=== PATIENT | male | born 1995 | race Caucasian/White ===

== ENCOUNTER 2017-09-12 23:42 | Emergency (ER) | payer BC ==
[2017-09-12] MEDS ORDERED: Pantoprazole 40 MG Vial IVPUSH ONE (23:51)
[2017-09-12] MEDS ORDERED: Ondansetron 4 MG/2 ML SDV IVPUSH ONE (23:51)
[2017-09-12] MEDS ORDERED: Sodium Chloride 0.9% 1,000 ML IV ONE (23:51)
[2017-09-12] MEDS ORDERED: Alum Hydrox/Mag Hydrox/Simeth 15 ML, Metoclopramide 5 MG, Lidocaine 2% 5 ML PO ONE ×3 (23:51)
--- NOTE | 2017-09-12 23:55 | EDM.PDOC ---
ED HPI GENERAL MEDICAL PROBLEM - General Chief Complaint: Gastrointestinal Problem Stated Complaint: ABDOMINAL PAIN Time Seen by Provider: 09/12/17 23:50 - History of Present Illness INITIAL COMMENTS - FREE TEXT/NARRATIVE: HISTORY AND PHYSICAL: History of present illness: Patient 22-year-old white male presents concerned about epigastric discomfort started approximately 1 hour prior to arrival was quite severe but is improved significantly. In one episode of self-induced emesis he denies fever chills or other complaints at this time Review of systems: As per history of present illness and below otherwise all systems reviewed and negative. Past medical history: As per history of present illness and as reviewed below otherwise noncontributory. Surgical history: As per history of present illness and as reviewed below otherwise noncontributory. Social history: No reported history of drug or alcohol abuse. Family history: As per history of present illness and as reviewed below otherwise noncontributory. Physical exam: HEENT: Atraumatic, normocephalic, pupils reactive, negative for conjunctival pallor or scleral icterus, mucous membranes moist, throat clear, neck supple, nontender, trachea midline. Lungs: Clear to auscultation, breath sounds equal bilaterally, chest nontender. Heart: S1S2, regular, negative for clicks, rubs, or JVD. Abdomen: Soft, nondistended, mild epigastric tenderness no rebound no guarding. Negative for masses or hepatosplenomegaly. Negative for costovertebral tenderness. Pelvis: Stable nontender. Genitourinary: Deferred. Rectal: Deferred. Extremities: Atraumatic, negative for cords or calf pain. Neurovascular unremarkable. Neuro: Awake, alert, oriented. Cranial nerves II through XII unremarkable. Cerebellum unremarkable. Motor and sensory unremarkable throughout. Exam nonfocal. Diagnostics: CBC CMP lipase chest x-ray Therapeutics: Normal saline 1 L bolus Zofran 4 mg IV GI cocktail Protonix 80 mg IV Impression: #1 epigastric abdominal pain Definitive disposition and diagnosis as appropriate pending reevaluation and review of above. abdominal pain Pain Score (Numeric/FACES): 3 - Related Data Allergies Allergy/AdvReac Type Severity Reaction Status Date / Time beeswax Allergy Swelling Verified 09/13/17 00:10 Home Meds: Home Meds . [No Known Home Meds] 08/05/16 [History] Past Medical History - Past Health History Medical/Surgical History: Denies Medical/Surgical History Social & Family History - Family History Family Medical History: Noncontributory - Tobacco Use Smoking Status *Q: Never Smoker Second Hand Smoke Exposure: Yes - Recreational Drug Use Recreational Drug Use: No ED ROS GENERAL - Review of Systems Review Of Systems: ROS reveals no pertinent complaints other than HPI. ED EXAM, GENERAL - Physical Exam Exam: See Below (The dictation) Course - Vital Signs Last Recorded V/S: Last Vital Signs Temp 37.2 C 09/12/17 23:48 Pulse 69 09/12/17 23:48 Resp 18 09/12/17 23:48 BP 137/107 H 09/12/17 23:48 Pulse Ox 100 09/12/17 23:48 - Orders/Labs/Meds Orders: Active Orders 24 hr Category Date Time Status Chest 1V Frontal [CR] Stat Exams 09/12/17 23:51 Taken UA W/MICROSCOPIC [URIN] Stat Lab 09/13/17 00:35 Results Sodium Chloride 0.9% [Normal Saline] 1,000 ml Med 09/12/17 23:51 Active IV STAT Medication Orders Sodium Chloride (Normal Saline) 1,000 mls @ 999 mls/hr IV STAT ONE Stop: 09/13/17 00:51 Last Admin: 09/12/17 23:59 Dose: 999 mls/hr Labs: Laboratory Tests 09/12/17 09/12/17 09/13/17 Range/Units 23:59 23:59 00:35 WBC 6.84 (4.0-11.0) K/uL RBC 5.10 (4.50-5.90) M/uL Hgb 15.1 (13.0-17.0) g/dL Hct 44.5 (38.0-50.0) % MCV 87.3 (80.0-98.0) fL MCH 29.6 (27.0-32.0) pg MCHC 33.9 (31.0-37.0) g/dL RDW Std Deviation 41.1 (28.0-62.0) fl RDW Coeff of Yair 13 (11.0-15.0) % Plt Count 263 (150-400) K/uL MPV 10.60 (7.40-12.00) fL Neut % (Auto) 61.7 (48.0-80.0) % Lymph % (Auto) 26.3 (16.0-40.0) % [place] % (Auto) 9.4 (0.0-15.0) % Eos % (Auto) 1.9 (0.0-7.0) % Baso % (Auto) 0.7 (0.0-1.5) % Neut # (Auto) 4.2 (1.4-5.7) K/uL Lymph # (Auto) 1.8 (0.6-2.4) K/uL [place] # (Auto) 0.6 (0.0-0.8) K/uL Eos # (Auto) 0.1 (0.0-0.7) K/uL Baso # (Auto) 0.1 (0.0-0.1) K/uL Nucleated RBC % 0.0 /100WBC Nucleated RBCs # 0 K/uL Sodium 140 (136-146) mmol/L Potassium 3.8 (3.5-5.1) mmol/L Chloride 104 (98-110) mmol/L Carbon Dioxide 25 (21-31) mmol/L BUN 11 (6.0-23.0) mg/dL Creatinine 0.9 (0.6-1.5) mg/dL Est Cr Clr Drug Dosing 99.96 mL/min Estimated GFR (MDRD) > 60.0 ml/min Glucose 104 (60-110) mg/dL Calcium 10.0 (8.8-10.8) mg/dL Total Bilirubin 0.3 (0.1-1.5) mg/dL AST 15 (5-40) IU/L ALT 13 (8-54) IU/L Alkaline Phosphatase 51 (40-150) Total Protein 7.7 (6.0-8.0) g/dL Albumin 4.7 (3.5-5.0) g/dL Globulin 3.0 (2.0-3.5) g/dL Albumin/Globulin Ratio 1.6 (1.3-2.8) Lipase 23 (7-80) U/L Urine Color YELLOW Urine Appearance CLEAR Urine pH 6.0 (5.0-8.0) Ur Specific [place] >= 1.030 (1.001-1.035) Urine Protein NEGATIVE (NEGATIVE) mg/dL Urine Glucose (UA) NEGATIVE (NEGATIVE) mg/dL Urine Ketones NEGATIVE (NEGATIVE) mg/dL Urine Occult Blood NEGATIVE (NEGATIVE) Urine Nitrite NEGATIVE (NEGATIVE) Urine Bilirubin NEGATIVE (NEGATIVE) Urine Urobilinogen 0.2 (<2.0) EU/dL Ur Leukocyte Esterase NEGATIVE (NEGATIVE) Meds: Medications Generic Name Dose Route Start Last Admin Trade Name Renq PRN Reason Stop Dose Admin Sodium Chloride 1,000 mls @ 999 mls/hr 09/12/17 23:51 09/12/17 23:59 Normal Saline IV 09/13/17 00:51 999 mls/hr STAT ONE Administration Discontinued Medications Generic Name Dose Route Start Last Admin Trade Name Freq PRN Reason Stop Dose Admin Al Hydroxide/Mg Hydroxide 15 0 ml 09/12/17 23:51 09/12/17 23:59 ml/ Metoclopramide HCl 5 mg/ PO 09/12/17 23:52 25 each Lidocaine HCl 5 ml ONETIME ONE Administration Ondansetron HCl 4 mg 09/12/17 23:51 09/12/17 23:59 Zofran IVPUSH 09/12/17 23:52 4 mg ONETIME ONE Administration Pantoprazole Sodium 80 mg 09/12/17 23:51 09/12/17 23:59 Protonix Iv IVPUSH 09/12/17 23:52 80 mg .BOLUS ONE Administration Departure - Departure Time of Disposition: 23:54 Disposition: Home, Self-Care 01 Condition: Good Clinical Impression: Epigastric pain - Discharge Information Referrals: PCP,None [Primary Care Provider] - Forms: ED Department Discharge Additional Instructions: The following information is given to patients seen in the emergency department who are being discharged to home. This information is to outline your options for follow-up care. We provide all patients seen in our emergency department with a follow-up referral. The need for follow-up, as well as the timing and circumstances, are variable depending upon the specifics of your emergency department visit. If you don't have a primary care physician on staff, we will provide you with a referral. We always advise you to contact your personal physician following an emergency department visit to inform them of the circumstance of the visit and for follow-up with them and/or the need for any referrals to a consulting specialist. The emergency department will also refer you to a specialist when appropriate. This referral assures that you have the opportunity for followup care with a specialist. All of these measure are taken in an effort to provide you with optimal care, which includes your followup. Under all circumstances we always encourage you to contact your private physician who remains a resource for coordinating your care. When calling for followup care, please make the office aware that this follow-up is from your recent emergency room visit. If for any reason you are refused follow-up, please contact the [facility] emergency department at and asked to speak to the emergency department charge nurse. [facility] Specialty Care - General Surgery Professional Building [address] [place] [address], [address] [place] [address] Protonix as prescribed follow-up primary medical doctor 1-2 days return as needed as discussed follow-up Gen. surgery as needed as discussed - My Orders Last 24 Hours: My Active Orders 09/12/17 23:51 Chest 1V Frontal [CR] Stat Sodium Chloride 0.9% [Normal Saline] 1,000 ml IV STAT 09/13/17 00:35 UA W/MICROSCOPIC [URIN] Stat - Assessment/Plan Last 24 Hours: My Active Orders 09/12/17 23:51 Chest 1V Frontal [CR] Stat Sodium Chloride 0.9% [Normal Saline] 1,000 ml IV STAT 09/13/17 00:35 UA W/MICROSCOPIC [URIN] Stat
[2017-09-13 00:40] LABS: CHLORIDE,CL 104 mmol/L (98-110); SODIUM,NA 140 mmol/L (136-146)
[2017-09-13 01:50] VITALS: BP 118/67
--- NOTE | 2017-09-13 13:35 | CR ---
EXAM DATE: 09/12/17 PATIENT'S AGE: 22 Patient: JUANA ATKINSON Facility: [place], [place] Site . Site : 1995 Study: XRay Chest [id number]/27/2017 12:37:47 AM Ordering Physician: Levy Yost Final Report: INDICATION: Shortness of breath TECHNIQUE: Chest radiograph COMPARISON: None FINDINGS: Mediastinum: The heart silhouette is normal in size and morphology. The mediastinum is normal in appearance. Lungs: Both lungs are unremarkable in appearance. No sign of pleural effusion seen. No pneumothorax is identified. Bones and soft tissue: Unremarkable for age. IMPRESSION: 1. No acute cardiopulmonary disease is seen. Dictated by: Darron York MD @ 09/13/2017 00:40:08 (Electronic Signature) Report Signed by Proxy. [facility]
== END 2017-09-13 01:30 | disposition home or self-care (01) ==
LOC: MW.ED 23:42
DX: R10.13 Epigastric pain (principal); Z91.030 Bee allergy status
CPT/HCPCS: 71010; 80053; 81001; 83690; 85025; 87804; 96361; 96374; 96375; 99284; A9270; C9113; J2405; J7040; 99283

== ENCOUNTER 2017-09-21 01:55 | Emergency (ER) | payer BC ==
[2017-09-21] MEDS ORDERED: Ondansetron 4 MG/2 ML SDV IVPUSH ONE (01:59)
[2017-09-21] MEDS ORDERED: Sodium Chloride 0.9% 1,000 ML IV ONE (01:59)
[2017-09-21] MEDS ORDERED: Ketorolac 30 MG/ML SDV IVPUSH ONE (01:59)
[2017-09-21] MEDS ORDERED: Aspirin 81 MG Tab.Chew PO ONE (01:59)
[2017-09-21] MEDS ORDERED: Albuterol/Ipratropium 3.0-0.5 MG/3 ML Neb Soln NEB ONE (02:01)
--- NOTE | 2017-09-21 02:06 | EDM.PDOC ---
ED HPI GENERAL MEDICAL PROBLEM - General Chief Complaint: Chest Pain Stated Complaint: CHEST PAIN Time Seen by Provider: 09/21/17 02:04 Source of Information: Reports: Patient - History of Present Illness INITIAL COMMENTS - FREE TEXT/NARRATIVE: HISTORY AND PHYSICAL: History of present illness: [Patient presents with epigastric pain as well as some shortness of breath that began tonight, he has had a recent visit for abdominal pain as well within the last week tonight associated with eating pizza couple hours prior Similar symptoms no fever nausea vomiting chills sweats Patient was taking a bath tonight and pain began acutely for right upper quadrant to epigastrium tonight patient states he is short of breath actually pain increases with deep inspiration he does not appear short of breath no labored breathing able to speak full sentences clearly no retractions or tripoding no pursed lip breathing ] Significant family cardiac history with a cardiac disease between 20 and 40 Review of systems: As per history of present illness and below otherwise all systems reviewed and negative. Past medical history: As per history of present illness and as reviewed below otherwise noncontributory. Surgical history: As per history of present illness and as reviewed below otherwise noncontributory. Social history: No reported history of drug or alcohol abuse. Family history: As per history of present illness and as reviewed below otherwise noncontributory. Physical exam: HEENT: Atraumatic, normocephalic, pupils reactive, negative for conjunctival pallor or scleral icterus, mucous membranes moist, throat clear, neck supple, nontender, trachea midline. Lungs: Clear to auscultation, breath sounds equal bilaterally, chest nontender. Heart: S1S2, regular, negative for clicks, rubs, or JVD. Abdomen: Soft, nondistended, nontender. Negative for masses or hepatosplenomegaly. Negative for costovertebral tenderness. Pelvis: Stable nontender. Genitourinary: Deferred. Rectal: Deferred. Extremities: Atraumatic, negative for cords or calf pain. Neurovascular unremarkable. Neuro: Awake, alert, oriented. Cranial nerves II through XII unremarkable. Cerebellum unremarkable. Motor and sensory unremarkable throughout. Exam nonfocal. Diagnostics: [CBC CMP lipase troponin urine tox screen EKG Chest 1 view Abdomen limited right upper quadrant ] Therapeutics: [1 L normal saline bolus Zofran 8 mg IV Toradol 30 mg IV DuoNeb ] Impression: Biliary colic Cholelithiasis Definitive disposition and diagnosis as appropriate pending reevaluation and review of above. right chest Pain Score (Numeric/FACES): 8 - Related Data Allergies Allergy/AdvReac Type Severity Reaction Status Date / Time Bee wasp Allergy Hives Uncoded 09/21/17 02:08 Home Meds: Home Meds . [No Known Home Meds] 08/05/16 [History] Past Medical History - Past Health History Medical/Surgical History: Denies Medical/Surgical History HEENT History: Reports: None Cardiovascular History: Reports: None Respiratory History: Reports: None Gastrointestinal History: Reports: None Genitourinary History: Reports: None Musculoskeletal History: Reports: None Neurological History: Reports: None Psychiatric History: Reports: None Endocrine/Metabolic History: Reports: None Hematologic History: Reports: None Immunologic History: Reports: None Oncologic (Cancer) History: Reports: None Dermatologic History: Reports: None - Infectious Disease History Infectious Disease History: Reports: None - Past Surgical History Head Surgeries/Procedures: Reports: None Social & Family History - Family History Family Medical History: Noncontributory - Tobacco Use Smoking Status *Q: Never Smoker Second Hand Smoke Exposure: Yes - Caffeine Use Caffeine Use: Reports: Soda - Recreational Drug Use Recreational Drug Use: No ED ROS GENERAL - Review of Systems Review Of Systems: ROS reveals no pertinent complaints other than HPI. ED EXAM, GENERAL - Physical Exam Exam: See Below Course - Vital Signs Last Recorded V/S: Last Vital Signs Temp 97.6 F 09/21/17 01:55 Pulse 98 09/21/17 01:55 Resp 20 09/21/17 01:55 BP 170/109 H 09/21/17 01:55 Pulse Ox 100 09/21/17 01:55 - Orders/Labs/Meds Orders: Active Orders 24 hr Category Date Time Status EKG Documentation Completion [RC] STAT Care 09/21/17 01:57 Active RT Aerosol Therapy [RC] ASDIRECTED Care 09/21/17 02:02 Active Abdomen Ltd [US] Stat Exams 09/21/17 02:03 Taken Chest 1V Frontal [CR] Stat Exams 09/21/17 01:57 Taken Labs: Laboratory Tests 09/21/17 09/21/17 09/21/17 Range/Units 02:18 02:18 02:53 WBC 7.32 (4.0-11.0) K/uL RBC 5.26 (4.50-5.90) M/uL Hgb 15.5 (13.0-17.0) g/dL Hct 45.1 (38.0-50.0) % MCV 85.7 (80.0-98.0) fL MCH 29.5 (27.0-32.0) pg MCHC 34.4 (31.0-37.0) g/dL RDW Std Deviation 39.6 (28.0-62.0) fl RDW Coeff of Yair 13 (11.0-15.0) % Plt Count 281 (150-400) K/uL MPV 10.40 (7.40-12.00) fL Neut % (Auto) 47.1 L (48.0-80.0) % Lymph % (Auto) 40.8 H (16.0-40.0) % [place] % (Auto) 8.3 (0.0-15.0) % Eos % (Auto) 3.0 (0.0-7.0) % Baso % (Auto) 0.8 (0.0-1.5) % Neut # (Auto) 3.4 (1.4-5.7) K/uL Lymph # (Auto) 3.0 H (0.6-2.4) K/uL [place] # (Auto) 0.6 (0.0-0.8) K/uL Eos # (Auto) 0.2 (0.0-0.7) K/uL Baso # (Auto) 0.1 (0.0-0.1) K/uL Nucleated RBC % 0.0 /100WBC Nucleated RBCs # 0 K/uL Sodium 143 (136-146) mmol/L Potassium 3.5 (3.5-5.1) mmol/L Chloride 108 (98-110) mmol/L Carbon Dioxide 24 (21-31) mmol/L BUN 8 (6.0-23.0) mg/dL Creatinine 0.9 (0.6-1.5) mg/dL Est Cr Clr Drug Dosing 99.96 mL/min Estimated GFR (MDRD) > 60.0 ml/min Glucose 89 (60-110) mg/dL Calcium 9.7 (8.8-10.8) mg/dL Total Bilirubin 0.5 (0.1-1.5) mg/dL AST 16 (5-40) IU/L ALT 20 (8-54) IU/L Alkaline Phosphatase 56 (40-150) Troponin I < 0.10 (0.0-0.29) NG/ML Total Protein 8.2 H (6.0-8.0) g/dL Albumin 5.0 (3.5-5.0) g/dL Globulin 3.2 (2.0-3.5) g/dL Albumin/Globulin Ratio 1.6 (1.3-2.8) Amylase 34 (10-90) U/L Lipase 27 (7-80) U/L Urine Color Urine Appearance Urine pH (5.0-8.0) Ur Specific [place] (1.001-1.035) Urine Protein (NEGATIVE) mg/dL Urine Glucose (UA) (NEGATIVE) mg/dL Urine Ketones (NEGATIVE) mg/dL Urine Occult Blood (NEGATIVE) Urine Nitrite (NEGATIVE) Urine Bilirubin (NEGATIVE) Urine Urobilinogen (<2.0) EU/dL Ur Leukocyte Esterase (NEGATIVE) Urine RBC (0-2/HPF) Urine WBC (0-5/HPF) Ur Epithelial Cells (NONE-FEW) Urine Bacteria (NEGATIVE) Urine Opiates Screen NEGATIVE (NEGATIVE) Ur Oxycodone Screen NEGATIVE (NEGATIVE) Urine Methadone Screen NEGATIVE (NEGATIVE) Ur Barbiturates Screen NEGATIVE (NEGATIVE) Ur Phencyclidine Scrn NEGATIVE (NEGATIVE) Ur Amphetamine Screen NEGATIVE (NEGATIVE) U Methamphetamines Scrn NEGATIVE (NEGATIVE) U Benzodiazepines Scrn NEGATIVE (NEGATIVE) U Cocaine Metab Screen NEGATIVE (NEGATIVE) U Marijuana (THC) Screen NEGATIVE (NEGATIVE) 09/21/17 Range/Units 02:53 WBC (4.0-11.0) K/uL RBC (4.50-5.90) M/uL Hgb (13.0-17.0) g/dL Hct (38.0-50.0) % MCV (80.0-98.0) fL MCH (27.0-32.0) pg MCHC (31.0-37.0) g/dL RDW Std Deviation (28.0-62.0) fl RDW Coeff of Yair (11.0-15.0) % Plt Count (150-400) K/uL MPV (7.40-12.00) fL Neut % (Auto) (48.0-80.0) % Lymph % (Auto) (16.0-40.0) % [place] % (Auto) (0.0-15.0) % Eos % (Auto) (0.0-7.0) % Baso % (Auto) (0.0-1.5) % Neut # (Auto) (1.4-5.7) K/uL Lymph # (Auto) (0.6-2.4) K/uL [place] # (Auto) (0.0-0.8) K/uL Eos # (Auto) (0.0-0.7) K/uL Baso # (Auto) (0.0-0.1) K/uL Nucleated RBC % /100WBC Nucleated RBCs # K/uL Sodium (136-146) mmol/L Potassium (3.5-5.1) mmol/L Chloride (98-110) mmol/L Carbon Dioxide (21-31) mmol/L BUN (6.0-23.0) mg/dL Creatinine (0.6-1.5) mg/dL Est Cr Clr Drug Dosing mL/min Estimated GFR (MDRD) ml/min Glucose (60-110) mg/dL Calcium (8.8-10.8) mg/dL Total Bilirubin (0.1-1.5) mg/dL AST (5-40) IU/L ALT (8-54) IU/L Alkaline Phosphatase (40-150) Troponin I (0.0-0.29) NG/ML Total Protein (6.0-8.0) g/dL Albumin (3.5-5.0) g/dL Globulin (2.0-3.5) g/dL Albumin/Globulin Ratio (1.3-2.8) Amylase (10-90) U/L Lipase (7-80) U/L Urine Color YELLOW Urine Appearance CLEAR Urine pH 6.0 (5.0-8.0) Ur Specific [place] >= 1.030 (1.001-1.035) Urine Protein NEGATIVE (NEGATIVE) mg/dL Urine Glucose (UA) NEGATIVE (NEGATIVE) mg/dL Urine Ketones NEGATIVE (NEGATIVE) mg/dL Urine Occult Blood NEGATIVE (NEGATIVE) Urine Nitrite NEGATIVE (NEGATIVE) Urine Bilirubin NEGATIVE (NEGATIVE) Urine Urobilinogen 0.2 (<2.0) EU/dL Ur Leukocyte Esterase NEGATIVE (NEGATIVE) Urine RBC 0-1 (0-2/HPF) Urine WBC 0-1 (0-5/HPF) Ur Epithelial Cells RARE (NONE-FEW) Urine Bacteria RARE (NEGATIVE) Urine Opiates Screen (NEGATIVE) Ur Oxycodone Screen (NEGATIVE) Urine Methadone Screen (NEGATIVE) Ur Barbiturates Screen (NEGATIVE) Ur Phencyclidine Scrn (NEGATIVE) Ur Amphetamine Screen (NEGATIVE) U Methamphetamines Scrn (NEGATIVE) U Benzodiazepines Scrn (NEGATIVE) U Cocaine Metab Screen (NEGATIVE) U Marijuana (THC) Screen (NEGATIVE) Meds: Medications Discontinued Medications Generic Name Dose Route Start Last Admin Trade Name Freq PRN Reason Stop Dose Admin Albuterol/Ipratropium 3 ml 09/21/17 02:01 09/21/17 02:20 Duoneb 3.0-0.5 Mg/3 Ml NEB 09/21/17 02:02 3 ml ONETIME ONE Administration Aspirin 324 mg 09/21/17 01:59 09/21/17 02:04 Aspirin PO 09/21/17 02:00 324 mg ONETIME ONE Administration Sodium Chloride 1,000 mls @ 999 mls/hr 09/21/17 01:59 09/21/17 02:14 Normal Saline IV 09/21/17 02:59 999 mls/hr STAT ONE Administration Ketorolac Tromethamine 30 mg 09/21/17 01:59 09/21/17 02:06 Toradol IVPUSH 09/21/17 02:00 30 mg ONETIME ONE Administration Ondansetron HCl 8 mg 09/21/17 01:59 09/21/17 02:05 Zofran IVPUSH 09/21/17 02:00 8 mg ONETIME ONE Administration Departure - Departure Time of Disposition: 03:21 Disposition: Home, Self-Care 01 Condition: Good Clinical Impression: Biliary colic symptom, Cholelithiasis - Discharge Information Referrals: PCP,None [Primary Care Provider] - Forms: ED Department Discharge Additional Instructions: Medication as prescribed Return if symptoms persist or worsen or fever vomiting chills sweats Follow-up with general surgery as per request referral for Dr. Leon will be provided this week [place] diet in the interim as discussed no fatty or deep fried foods The following information is given to patients seen in the emergency department who are being discharged to home. This information is to outline your options for follow-up care. We provide all patients seen in our emergency department with a follow-up referral. The need for follow-up, as well as the timing and circumstances, are variable depending upon the specifics of your emergency department visit. If you don't have a primary care physician on staff, we will provide you with a referral. We always advise you to contact your personal physician following an emergency department visit to inform them of the circumstance of the visit and for follow-up with them and/or the need for any referrals to a consulting specialist. The emergency department will also refer you to a specialist when appropriate. This referral assures that you have the opportunity for follow-up care with a specialist. All of these measure are taken in an effort to provide you with optimal care, which includes your follow-up. Under all circumstances we always encourage you to contact your private physician who remains a resource for coordinating your care. When calling for follow-up care, please make the office aware that this follow-up is from your recent emergency room visit. If for any reason you are refused follow-up, please contact the [facility] emergency department at and asked to speak to the emergency department charge nurse. - My Orders Last 24 Hours: My Active Orders 09/21/17 01:57 EKG Documentation Completion [RC] STAT Chest 1V Frontal [CR] Stat 09/21/17 02:02 RT Aerosol Therapy [RC] ASDIRECTED 09/21/17 02:03 Abdomen Ltd [US] Stat - Assessment/Plan Last 24 Hours: My Active Orders 09/21/17 01:57 EKG Documentation Completion [RC] STAT Chest 1V Frontal [CR] Stat 09/21/17 02:02 RT Aerosol Therapy [RC] ASDIRECTED 09/21/17 02:03 Abdomen Ltd [US] Stat
[2017-09-21 02:45] LABS: CHLORIDE,CL 108 mmol/L (98-110); SODIUM,NA 143 mmol/L (136-146)
[2017-09-21 03:51] VITALS: BP 136/81
--- NOTE | 2017-09-21 09:15 | US ---
EXAM DATE: 09/21/17 PATIENT'S AGE: 22 Patient: JUANA ATKINSON Facility: [place], [place] Site . Site : 1995 Study: US Abdomen [id number]/4/2018 2:51:59 AM Ordering Physician: Manish Honeycutt Final Report: INDICATION: Chest pain. TECHNIQUE: Ultrasound abdomen limited. Sonographic images of the right upper quadrant were obtained using mendez-scale and color Doppler images. COMPARISON: None. FINDINGS: Liver: Homogeneous in echotexture. No focal lesion. Gallbladder: Multiple shadowing stones. No gallbladder wall thickening or pericholecystic fluid. Common bile duct: 3 mm. Pancreas: Unremarkable as imaged. Right kidney: 9.6 cm in length. Normal echotexture and cortex. No masses, stones , or hydronephrosis. Vasculature: Proximal abdominal aorta and IVC are normal. IMPRESSION: Cholelithiasis. No ultrasound evidence of cholecystitis. No biliary ductal dilatation. Dictated by Mg Jimenez MD @ 09/21/2017 2:58:23 AM Dictated by: Mg Jimenez MD @ 09/21/2017 02:58:40 (Electronic Signature) Report Signed by Proxy. XIAO
--- NOTE | 2017-09-21 09:16 | CR ---
EXAM DATE: 09/21/17 PATIENT'S AGE: 22 Patient: JUANA ATKINSON Facility: [place], [place] Site . Site : 1995 Study: XRay Chest [id number]/4/2018 2:54:05 AM Ordering Physician: Manish Honeycutt Final Report: INDICATIONS: Chest pain. TECHNIQUE: Chest 1 view. COMPARISON: Chest radiograph September 13, 2017. FINDINGS: No pneumothorax, pleural effusion or airspace consolidation. Cardiac and mediastinal contours are within normal limits. Upper abdomen and osseous structures show no acute abnormality. IMPRESSION: No evidence of acute cardiopulmonary disease. Dictated by Mg Jimenez MD @ 09/21/2017 2:56:25 AM Dictated by: Mg Jimenez MD @ 09/21/2017 02:56:37 (Electronic Signature) Report Signed by Proxy. [facility]
== END 2017-09-21 03:34 | disposition home or self-care (01) ==
LOC: MW.ED 01:55
DX: K80.70 Calculus of gallbladder and bile duct without cholecystitis without obstruction (principal); Z77.22 Contact with and (suspected) exposure to environmental tobacco smoke (acute) (chronic); Z91.030 Bee allergy status
CPT/HCPCS: 71045; 76705; 80053; 80305; 81001; 82150; 83690; 84484; 85025; 93005; 94640; 96361; 96374; 96375; 99285; A9270; J1885; J2405; J7040; 99284

== ENCOUNTER 2017-10-16 09:06 | Day surgery (SDC) | payer BC ==
[~2017-10-16 09:06] MED LIST: Bupivacaine 0.5% 10 ML SDV ONE; Glycopyrrolate 0.2 MG/ML SDV ONE; Ketorolac 30 MG/ML SDV ONE; Lactated Ringers 1,000 ML IV SCH; Lidocaine 2% 5 ML SDV ONE; Midazolam 1 MG/ML 2 ML SDV ONE; Neostigmine Methylsulfate 1 MG/ML 5 ML Syringe ONE; Ondansetron 4 MG/2 ML SDV ONE; Propofol 200 MG/20 ML SDV ONE; Rocuronium 10 MG/ML 10 ML Syringe ONE; ceFAZolin 1 GM Vial ONE; cefOXitin 1 GM in Premix Bag 1 BAG IV SCH; cefOXitin 2 GM in Premix Bag 1 BAG IV ONE; fentaNYL 100 MCG/2 ML SDV ONE
[2017-10-16] MEDS ORDERED: Scopolamine 1.5 MG Transdermal Patch TRDERM PRN (09:54)
--- NOTE | 2017-10-16 09:54 | PCM.PREANE ---
Preanesthetic Assessment - Anesthesia/Transfusion/Family Hx Anesthesia History: No Prior Anesthesia Family History of Anesthesia Reaction: No Transfusion History: No Prior Transfusion(s) - Review of Systems General: No Symptoms Pulmonary: No Symptoms Cardiovascular: No Symptoms Gastrointestinal: No Symptoms Neurological: No Symptoms Other: Reports: None - Physical Assessment NPO Status Date: 10/15/17 Height: 1.73 m Weight: 53.977 kg ASA Class: 2 Airway Class: Mallampati = 2 Dentition: Reports: Broken Tooth/Teeth ROM/Head Extension: Full Lungs: Clear to Auscultation, Normal Respiratory Effort Cardiovascular: Regular Rate, Regular Rhythm - Allergies Allergies/Adverse Reactions: Allergies Allergy/AdvReac Type Severity Reaction Status Date / Time Bee wasp Allergy Anaphylactic Uncoded 10/11/17 10:01 Shock - Anesthesia Plan Pre-Op Medication Ordered: Other (scop) - Acknowledgements Anesthesia Type Planned: General Anesthesia Pt an Appropriate Candidate for the Planned Anesthesia: Yes Alternatives and Risks of Anesthesia Discussed w Pt/Guardian: Yes Pt/Guardian Understands and Agrees with Anesthesia Plan: Yes Additional Comments: neither asthma or migraine are active problems PreAnesthesia Questionnaire - Past Health History Medical/Surgical History: Denies Medical/Surgical History HEENT History: Reports: None Cardiovascular History: Reports: None Respiratory History: Reports: Asthma Other Respiratory History: asthma as a child but outgrew it Gastrointestinal History: Reports: None Genitourinary History: Reports: None Musculoskeletal History: Reports: None Neurological History: Reports: Migraines Psychiatric History: Reports: None Endocrine/Metabolic History: Reports: None Hematologic History: Reports: None Immunologic History: Reports: None Oncologic (Cancer) History: Reports: None Dermatologic History: Reports: None - Infectious Disease History Infectious Disease History: Reports: None - Past Surgical History Head Surgeries/Procedures: Reports: None - SUBSTANCE USE Smoking Status *Q: Never Smoker Second Hand Smoke Exposure: Yes Recreational Drug Use History: No - HOME MEDS Home Medications: Home Meds Ciprofloxacin [Cipro XR] 500 mg PO DAILY 10/12/17 [History] Ondansetron [Zofran Odt] 8 mg PO ASDIRECTED PRN 10/12/17 [History] - CURRENT (IN HOUSE) MEDS Current Meds: Current Medications Cefoxitin Sodium 1 gm/ Premix 50 mls @ 100 mls/hr IV ONETIME ALYSA Lactated Ringer's (Ringers, Lactated) 1,000 mls @ 125 mls/hr IV ASDIRECTED ALYSA Discontinued Medications Bupivacaine HCl (Sensorcaine-Mpf 0.5%) Confirm Administered Dose 30 ml .ROUTE .STK-MED ONE Stop: 10/16/17 07:22 Cefazolin Sodium (Ancef) Confirm Administered Dose 1 gm .ROUTE .STK-MED ONE Stop: 10/16/17 07:22 Fentanyl (Sublimaze) Confirm Administered Dose 300 mcg .ROUTE .STK-MED ONE Stop: 10/16/17 08:34 Glycopyrrolate (Robinul) Confirm Administered Dose 0.6 mg .ROUTE .STK-MED ONE Stop: 10/16/17 08:36 Cefoxitin Sodium 2 gm/ Premix 50 mls @ 100 mls/hr IV ONETIME ONE Stop: 10/16/17 08:29 Cefoxitin Sodium (Mefoxin In Dextrose,Iso-Osm 1 Gm/50 Ml) Confirm Administered Dose 50 mls @ as directed .ROUTE .ST-MED ONE Stop: 10/16/17 08:39 Ketorolac Tromethamine (Toradol) Confirm Administered Dose 30 mg .ROUTE .STK- MED ONE Stop: 10/16/17 08:36 Lidocaine (Xylocaine-Mpf 2%) Confirm Administered Dose 10 ml .ROUTE .STK-MED ONE Stop: 10/16/17 08:33 Midazolam HCl (Versed 1 Mg/Ml) Confirm Administered Dose 2 mg .ROUTE .STK-MED ONE Stop: 10/16/17 08:34 Neostigmine Methylsulfate (Neostigmine) Confirm Administered Dose 5 mg .ROUTE .STK-MED ONE Stop: 10/16/17 08:36 Ondansetron HCl (Zofran) Confirm Administered Dose 4 mg .ROUTE .STK-MED ONE Stop: 10/16/17 08:36 Propofol (Diprivan 20 Ml) Confirm Administered Dose 400 mg .ROUTE .STK-MED ONE Stop: 10/16/17 08:33 Rocuronium Falkner (Zemuron) Confirm Administered Dose 100 mg .ROUTE .STK-MED ONE Stop: 10/16/17 08:36
[2017-10-16] MEDS ORDERED: HYDROmorphone 2 MG/ML Syringe IVPUSH ONE (10:56)
[2017-10-16] MEDS ORDERED: fentaNYL 100 MCG/2 ML SDV IVPUSH PRN (10:56)
[2017-10-16] MEDS ORDERED: Morphine 10 MG/ML Syringe IVPUSH PRN (11:45)
[2017-10-16] MEDS ORDERED: Lactated Ringers 1,000 ML IV SCH (11:45)
[2017-10-16] MEDS ORDERED: Acetaminophen/HYDROcodone 325-5 MG Tab PO PRN (11:45)
--- NOTE | 2017-10-16 11:47 | PCM.OPNOTE ---
- General Post-Op/Procedure Note Date of Surgery/Procedure: 10/16/17 Operative Procedure(s): Laparoscopic cholecystectomy Pre Op Diagnosis: Symptomatic cholelithiasis Post-Op Diagnosis: Acute cholecystitis with cholelithiasis Anesthesia Technique: General ET Tube (ASA II) Primary Surgeon: Jean Leon Fluid Replacement, Intraop: 1,300 EBL in mLs: 10 Condition: Good Free Text/Narrative:: Dictation [id number] CPT CODE [id number]
--- NOTE | 2017-10-16 13:19 | PCM.POSTAN ---
POST ANESTHESIA ASSESSMENT - MENTAL STATUS Mental Status: Alert, Oriented - RESPIRATORY Respiratory Status: Respiratory Rate WNL, Airway Patent, O2 Saturation Stable - CARDIOVASCULAR CV Status: Pulse Rate WNL, Blood Pressure Stable - GASTROINTESTINAL GI Status: No Symptoms - POST OP HYDRATION Hydration Status: Adequate & Stable
--- NOTE | 2017-10-16 13:24 | PCM48HPAN ---
Post Anesthesia Note - EVALUATION WITHIN 48HRS OF ANESTHETIC Vital Signs in Normal Range: Yes Patient Participated in Evaluation: Yes Respiratory Function Stable: Yes Airway Patent: Yes Cardiovascular Function Stable: Yes Hydration Status Stable: Yes Pain Control Satisfactory: Yes Nausea and Vomiting Control Satisfactory: Yes Mental Status Recovered: Yes - COMMENTS/OBSERVATIONS Free Text/Narrative:: tired, but no pain, no nausea,
[2017-10-16 14:06] VITALS: BP 111/73
--- NOTE | 2017-10-16 19:27 | OR ---
SURGEON: Jean Leon M.D. DATE OF PROCEDURE: 10/16/2017 OPERATION PERFORMED: Laparoscopic cholecystectomy. ANESTHESIA: General endotracheal. ASA CLASSIFICATION: II. PREOPERATIVE DIAGNOSIS: Symptomatic cholelithiasis. POSTOPERATIVE DIAGNOSIS: Acute cholecystitis with cholelithiasis. DESCRIPTION OF PROCEDURE: The patient was taken to the operating room and placed on the operating table in the supine position. Time-out was called for appropriate identification of the patient and procedure. Thigh-high TEDs and sequential compression boots were placed. Following satisfactory attainment of general endotracheal anesthesia, a Castro catheter was placed in the patient's urinary bladder. The abdomen was prepped with DuraPrep solution. Sterile drapes were applied. The skin below the umbilicus, approximately 3 cm, was infiltrated with 0.5% Marcaine solution. The skin incision was made and deepened into the subcutaneous tissue using electrocautery. Hemostasis was obtained with the use of electrocautery. The Veress needle was introduced into the peritoneal cavity. Saline drop test was positive. Carbon dioxide pneumoperitoneum was established with the relief set at 13 cm of water. Once we had a satisfactory pneumoperitoneum, 5 mm camera and port were placed through the infraumbilical incision. The patient was then positioned with his feet down and rolled to the left. Under camera vision, 12 mm subxiphoid, 5 mm midclavicular, and 5 mm anterior axillary ports were placed. Each incision had preemptively been infiltrated with 0.5% Marcaine solution. The gallbladder was able to be grasped and was acutely inflamed. Nevertheless, I was able to maneuver the gallbladder, and we did not have to decompress it. Adhesions were taken down bluntly. The cholecystohepatic triangle was dissected free obtaining a good critical view of both the cystic duct and cystic artery. These structures were individually hemoclipped before division with laparoscopic Metzenbaum scissor. Once that was accomplished, the gallbladder was dissected away from its bed using electrocautery. Bleeding sites were electrocoagulated. Once the gallbladder was completely mobilized, this was placed in an Endopouch and secured. The bed of the gallbladder was then irrigated with sterile saline solution and all fluid was aspirated. No bile leak was noted. There was minimal oozing from the liver bed secondary to the acute inflammatory process. Surgicel was placed into the bed of the gallbladder. No other bleeding was noted. The Endopouch containing the gallbladder was attempted to be removed through the subxiphoid incision. This was not a large enough incision and, therefore, it was extended which allowed us to extract the Endopouch and its contents. Under camera vision, the 5 mm midclavicular anterior axillary ports were removed and finally the infraumbilical camera ports were removed. Given the length of the incision necessary to remove the gallbladder, the subxiphoid fascia was closed with interrupted 0 Ethibond sutures. The wounds were inspected for hemostasis, and small bleeding sites were electrocoagulated. The infraumbilical and subxiphoid incisions were closed in 2 layers approximating the subcutaneous tissue with 3-0 Vicryl and the skin with subcuticular 4-0 Monocryl. The anterior axillary and midclavicular incisions were closed with subcuticular 4-0 Monocryl. All incisions were Steri-Stripped and dressed with sterile Tegaderm pads. Sponge, needle, and instrument counts were all correct. Castro catheter was removed prior to emergence from anesthesia. Following emergence from anesthesia and extubation, the patient was taken to the recovery room in stable condition. DANIELLE / [place] /[id number]
== END 2017-10-16 14:00 | disposition home or self-care (01) ==
LOC: MW.SDS 09:06
PROVIDERS: ATTEND Surgery
DX: K80.12 Calculus of gallbladder with acute and chronic cholecystitis without obstruction (principal); G43.909 Migraine, unspecified, not intractable, without status migrainosus; J45.909 Unspecified asthma, uncomplicated; Z91.030 Bee allergy status; Z91.038 Other insect allergy status; Z79.2 Long term (current) use of antibiotics; Z79.899 Other long term (current) drug therapy; Z82.49 Family history of ischemic heart disease and other diseases of the circulatory system
CPT/HCPCS: 47562; J0694; J1885; J2250; J2405; J3010; J7120; J0690; J2704

== ENCOUNTER 2018-03-29 17:20 | Observation (INO) | payer BC ==
[2018-03-29] MEDS ORDERED: Ketorolac 30 MG/ML SDV IVPUSH ONE (18:11)
[2018-03-29] MEDS ORDERED: Sodium Chloride 0.9% 1,000 ML IV ONE ×2 (18:11→20:03)
[2018-03-29] MEDS ORDERED: Sodium Chloride 0.9% 2.5 ML Syringe FLUSH PRN (18:15)
[2018-03-29] MEDS ORDERED: Sodium Chloride 0.9% 10 ML Syringe FLUSH PRN (18:16)
--- NOTE | 2018-03-29 18:24 | EDM.PDOC ---
<Anny Burr - Last Filed: 03/29/18 18:33> ED HPI GENERAL MEDICAL PROBLEM - General Chief Complaint: General Stated Complaint: NOT FEELING GOOD/DIZZY Time Seen by Provider: 03/29/18 18:00 - History of Present Illness INITIAL COMMENTS - FREE TEXT/NARRATIVE: Dr. Burr dictating addendum note as supervising physician on this case. The patient looks drained and tired but is nontoxic on my evaluation vital signs are noted by me including the tachycardia. He describes his headache as frontal which then extends to the top of his head and then posteriorly but he does not complain of neck pain does have a slight sore throat. He does complain of chest discomfort when he takes a deep breath and when he coughs and feels like he has phlegm but only a little bit has come out. He said no abdominal pain or diarrhea and he has had some nausea but no vomiting. He has general myalgias aches and pains and has not been eating and drinking very much. He doesn't have any cervical adenopathy and the uvula slightly reddened with some minimal oropharyngeal erythema but no exudates. I do not appreciate any nuchal rigidity or posterior cervical adenopathy. Patient would not take a very deep breath on my exam was hard to fully evaluate breath sounds but there was no wheezing or stridor overtly heard and there was no work of breathing. He had no discrete sinus tenderness on my exam and no abdominal tenderness. Continue to monitor his workup and reevaluate after IV fluids Toradol and testing results are available for disposition. Chest Pain Score (Numeric/FACES): 5 Generalized Pain Score (Numeric/FACES): 4 Bilateral Lower Abdomen Pain Score (Numeric/FACES): 2 Lower Back Pain Score (Numeric/FACES): 6 Neck Pain Score (Numeric/FACES): 6 - Related Data Allergies Allergy/AdvReac Type Severity Reaction Status Date / Time Bee wasp Allergy Anaphylactic Uncoded 10/11/17 10:01 Shock Course - Vital Signs Last Recorded V/S: Last Vital Signs Temp 37.2 C 03/29/18 19:33 Pulse 94 03/29/18 19:33 Resp 16 03/29/18 19:33 BP 96/41 L 03/29/18 19:33 Pulse Ox 93 L 03/29/18 19:33 - Orders/Labs/Meds Orders: Active Orders 24 hr Category Date Time Status RT Aerosol Therapy [RC] ASDIRECTED Care 03/29/18 18:56 Active Chest 2V [CR] Stat Exams 03/29/18 18:46 Taken CULTURE BLOOD [BC] Stat Lab 03/29/18 19:53 Ordered CULTURE BLOOD [BC] Stat Lab 03/29/18 19:53 Ordered CULTURE STREP A CONFIRMATION [] Stat Lab 03/29/18 18:25 Results CULTURE URINE [] Stat Lab 03/29/18 19:24 Received STREP SCRN A RAPID W CULT CONF [RM] Stat Lab 03/29/18 18:25 Ordered UA W/MICROSCOPIC [URIN] Stat Lab 03/29/18 19:24 Ordered Sodium Chloride 0.9% [Saline Flush] Med 03/29/18 18:16 Active 10 ml FLUSH ASDIRECTED PRN Sodium Chloride 0.9% [Saline Flush] Med 03/29/18 18:15 Active 2.5 ml FLUSH ASDIRECTED PRN Blood Culture x2 Reflex Set [OM.PC] Stat Oth 03/29/18 19:53 Ordered Medication Orders Sodium Chloride (Saline Flush) 2.5 ml FLUSH ASDIRECTED PRN PRN Reason: Keep Vein Open Sodium Chloride (Saline Flush) 10 ml FLUSH ASDIRECTED PRN PRN Reason: Keep Vein Open Labs: Laboratory Tests 03/29/18 03/29/18 03/29/18 Range/Units 18:28 18:28 18:28 WBC 30.48 H (4.0-11.0) K/uL RBC 5.21 (4.50-5.90) M/uL Hgb 15.3 (13.0-17.0) g/dL Hct 45.3 (38.0-50.0) % MCV 86.9 (80.0-98.0) fL MCH 29.4 (27.0-32.0) pg MCHC 33.8 (31.0-37.0) g/dL RDW Std Deviation 42.5 (28.0-62.0) fl RDW Coeff of Yair 13 (11.0-15.0) % Plt Count 245 (150-400) K/uL MPV 11.20 (7.40-12.00) fL Add Manual Diff YES Neutrophils % (Manual) 85 H (48.0-80.0) % Band Neutrophils % 10 % Lymphocytes % (Manual) 3 L (16.0-40.0) % Monocytes % (Manual) 2 (0.0-15.0) % Nucleated RBC % 0.0 /100WBC Absolute Seg Neuts 25.9 H (1.4-5.7) Band Neutrophils # 3.0 Lymphocytes # (Manual) 0.9 (0.6-2.4) Monocytes # (Manual) 0.6 (0.0-0.8) Nucleated RBCs # 0 K/uL Lactate 1.3 (0.20-2.00) mmol/L Sodium 135 L (136-148) mmol/L Potassium 3.7 (3.5-5.1) mmol/L Chloride 99 (98-107) mmol/L Carbon Dioxide 25.4 (21.0-32.0) mmol/L BUN 13 (7.0-18.0) mg/dL Creatinine 1.2 (0.8-1.3) mg/dL Est Cr Clr Drug Dosing 74.97 mL/min Estimated GFR (MDRD) > 60.0 ml/min Glucose 112 H (74-106) mg/dL Calcium 8.9 (8.5-10.1) mg/dL Total Bilirubin 1.1 H (0.2-1.0) mg/dL AST 50 H (15-37) IU/L ALT 55 (14-63) IU/L Alkaline Phosphatase 82 (46-116) U/L Creatine Kinase 121 (26-308) U/L Total Protein 7.5 (6.4-8.2) g/dL Albumin 4.0 (3.4-5.0) g/dL Globulin 3.5 (2.0-3.5) g/dL Albumin/Globulin Ratio 1.1 L (1.3-2.8) Meds: Medications Generic Name Dose Route Start Last Admin Trade Name Freq PRN Reason Stop Dose Admin Sodium Chloride 2.5 ml 03/29/18 18:15 Saline Flush FLUSH ASDIRECTED PRN Keep Vein Open Sodium Chloride 10 ml 03/29/18 18:16 Saline Flush FLUSH ASDIRECTED PRN Keep Vein Open Discontinued Medications Generic Name Dose Route Start Last Admin Trade Name Freq PRN Reason Stop Dose Admin Albuterol/Ipratropium 3 ml 03/29/18 18:55 03/29/18 19:17 Duoneb 3.0-0.5 Mg/3 Ml NEB 03/29/18 18:56 3 ml ONETIME ONE Administration Sodium Chloride 1,000 mls @ 999 mls/hr 03/29/18 18:11 03/29/18 18:34 Normal Saline IV 03/29/18 19:11 999 mls/hr STAT ONE Administration Ketorolac Tromethamine 30 mg 03/29/18 18:11 03/29/18 18:35 Toradol IVPUSH 03/29/18 18:12 30 mg ONETIME ONE Administration Departure - Departure Disposition: Refer to Observation Clinical Impression: Leukocytosis - Discharge Information Referrals: PCP,None [Primary Care Provider] - Forms: ED Department Discharge - My Orders Last 24 Hours: My Active Orders 03/29/18 19:53 CULTURE BLOOD [BC] Stat CULTURE BLOOD [BC] Stat Blood Culture x2 Reflex Set [OM.PC] Stat - Assessment/Plan Last 24 Hours: My Active Orders 03/29/18 19:53 CULTURE BLOOD [BC] Stat CULTURE BLOOD [BC] Stat Blood Culture x2 Reflex Set [OM.PC] Stat <Neymar Lewis Z - Last Filed: 03/29/18 19:19> ED HPI GENERAL MEDICAL PROBLEM - General Source of Information: Reports: Patient, Family History Limitations: Reports: No Limitations - History of Present Illness INITIAL COMMENTS - FREE TEXT/NARRATIVE: 22-year-old male presenting with symptoms of feeling unwell. Patient states that his symptoms started 2 days ago with a cough and chest tightness, these symptoms started to progress and the patient started to have chills, feeling clammy, stating that he felt extremely hot and started to develop generalized myalgia, as well as headaches. Patient states that the headaches have been progressively getting worse over the past day, he states that he is having some fuzziness in his vision. He has only taken acetaminophen and ibuprofen pain control which has had minimal effect. Patient states he has not been able to take in any solid food for past couple of days, he has been able to take in fluids aside from last night when he developed one episode of vomiting and had another episode this am. Patient states that he went for a swim in the leg and afterwards went into a hot tub in very cold water and it was the next day that he started to develop these symptoms. He denies any significant past medical history, denies taking any medication. Chest Pain Score (Numeric/FACES): 5 Past Medical History - Past Health History Medical/Surgical History: Denies Medical/Surgical History HEENT History: Reports: None Cardiovascular History: Reports: None Respiratory History: Reports: Asthma Other Respiratory History: asthma as a child but outgrew it Gastrointestinal History: Reports: None Genitourinary History: Reports: None Musculoskeletal History: Reports: None Neurological History: Reports: Migraines Psychiatric History: Reports: None Endocrine/Metabolic History: Reports: None Hematologic History: Reports: None Immunologic History: Reports: None Oncologic (Cancer) History: Reports: None Dermatologic History: Reports: None - Infectious Disease History Infectious Disease History: Reports: Chicken Pox - Past Surgical History Head Surgeries/Procedures: Reports: None Social & Family History - Family History Family Medical History: Noncontributory Cardiac: Reports: [place] Other Cardiac Family History: father - Tobacco Use Smoking Status *Q: Never Smoker - Caffeine Use Caffeine Use: Reports: Coffee - Recreational Drug Use Recreational Drug Use: No ED ROS GENERAL - Review of Systems Review Of Systems: ROS reveals no pertinent complaints other than HPI. ED EXAM, GENERAL - Physical Exam Exam: See Below Exam Limited By: No Limitations General Appearance: Alert, Mild Distress Eye Exam: Bilateral Eye: EOMI Nose: Normal Inspection, Normal Mucosa Throat/Mouth: Other (Mildly erythematous uvula) Head: Atraumatic, Normocephalic Neck: Normal Inspection, Other (Patient is complaining of mild neck pain but is able to move his neck and full range of motion) Respiratory/Chest: Lungs Clear, Decreased Breath Sounds, Other (Patient unable to take in a full breath as he starts to have coughing spells) Cardiovascular: Regular Rate, Rhythm, Tachycardia GI/Abdominal: Normal Bowel Sounds, Soft, Non-Tender, No Organomegaly Back Exam: Normal Inspection Extremities: Normal Inspection, Normal Range of Motion, Other (Patient is complaining of generalized pain and joint) Skin Exam: Warm, Dry Lymphatic: No Adenopathy Course - Orders/Labs/Meds Labs: Laboratory Tests 03/29/18 03/29/18 03/29/18 Range/Units 18:28 18:28 18:28 WBC 30.48 H (4.0-11.0) K/uL RBC 5.21 (4.50-5.90) M/uL Hgb 15.3 (13.0-17.0) g/dL Hct 45.3 (38.0-50.0) % MCV 86.9 (80.0-98.0) fL MCH 29.4 (27.0-32.0) pg MCHC 33.8 (31.0-37.0) g/dL RDW Std Deviation 42.5 (28.0-62.0) fl RDW Coeff of Yair 13 (11.0-15.0) % Plt Count 245 (150-400) K/uL MPV 11.20 (7.40-12.00) fL Add Manual Diff YES Neutrophils % (Manual) 85 H (48.0-80.0) % Band Neutrophils % 10 % Lymphocytes % (Manual) 3 L (16.0-40.0) % Monocytes % (Manual) 2 (0.0-15.0) % Nucleated RBC % 0.0 /100WBC Absolute Seg Neuts 25.9 H (1.4-5.7) Band Neutrophils # 3.0 Lymphocytes # (Manual) 0.9 (0.6-2.4) Monocytes # (Manual) 0.6 (0.0-0.8) Nucleated RBCs # 0 K/uL Lactate 1.3 (0.20-2.00) mmol/L Sodium 135 L (136-148) mmol/L Potassium 3.7 (3.5-5.1) mmol/L Chloride 99 (98-107) mmol/L Carbon Dioxide 25.4 (21.0-32.0) mmol/L BUN 13 (7.0-18.0) mg/dL Creatinine 1.2 (0.8-1.3) mg/dL Est Cr Clr Drug Dosing 74.97 mL/min Estimated GFR (MDRD) > 60.0 ml/min Glucose 112 H (74-106) mg/dL Calcium 8.9 (8.5-10.1) mg/dL Total Bilirubin 1.1 H (0.2-1.0) mg/dL AST 50 H (15-37) IU/L ALT 55 (14-63) IU/L Alkaline Phosphatase 82 (46-116) U/L Creatine Kinase 121 (26-308) U/L Total Protein 7.5 (6.4-8.2) g/dL Albumin 4.0 (3.4-5.0) g/dL Globulin 3.5 (2.0-3.5) g/dL Albumin/Globulin Ratio 1.1 L (1.3-2.8) - Problem List Review Problem List Initiated/Reviewed/Updated: Yes - Assessment/Plan Assessment:: 22-year-old male presenting with complaints of generalized discomfort and feeling of unwellness, shortness of breath, cough, headaches, generalized myalgia and joint pain most likely etiology is likely viral in nature we shall rule out any bacterial infectious causes. Plan: Shall be getting a CBC, CMP, CK, urine analysis, lactate level to assess for any underlying infectious process. As well we will be getting a chest x-ray and a rapid strep IV fluids 1 L for the tachycardia that the patient is having and dehydration as well as Toradol for pain control. <Priyank Lockett - Last Filed: 03/29/18 20:02> ED ROS GENERAL - Review of Systems Review Of Systems: ROS reveals no pertinent complaints other than HPI. Course - Vital Signs Text/Narrative:: Patient's ED course has been unremarkable he states he feels improved he remains afebrile his tachycardia is resolved I discussed with him his lab results and diagnostic tests His leukocytosis to be admitted for observation blood cultures were add lactic acid was normal Departure - Departure Time of Disposition: 20:00 Condition: Good
[2018-03-29] MEDS ORDERED: Albuterol/Ipratropium 3.0-0.5 MG/3 ML Neb Soln NEB ONE (18:55)
[2018-03-29 19:16] LABS: CHLORIDE,CL 99 mmol/L (98-107); SODIUM,NA 135 mmol/L (136-148)
[2018-03-29] MEDS ORDERED: cefTRIAXone 1 GM in Sodium Chloride 0.9% 50 ML IV SCH (23:00)
[2018-03-29] MEDS ORDERED: Ondansetron 4 MG/2 ML SDV IVPUSH PRN (23:07)
--- NOTE | 2018-03-29 23:12 | PCM.HP ---
H&P History of Present Illness - General Date of Service: 03/31/18 Admit Problem/Dx: Admission Diagnosis/Problem Admission Diagnosis/Problem Leukocytosis - History of Present Illness Initial Comments - Free Text/Narative: 22 yo male who presents with two day history of fevers, chills, and myalgias. He reports nausea and has some pain with urination. He denies any vomiting, diarrhea or abdominal pain. Chest Pain Score (Numeric/FACES): 3 Generalized Pain Score (Numeric/FACES): 4 Bilateral Lower Abdomen Pain Score (Numeric/FACES): 4 Lower Back Pain Score (Numeric/FACES): 4 Neck Pain Score (Numeric/FACES): 4 - Related Data Allergies/Adverse Reactions: Allergies Allergy/AdvReac Type Severity Reaction Status Date / Time Bee wasp Allergy Severe Anaphylactic Uncoded 03/29/18 21:37 Shock Home Medications: Home Meds Cephalexin [Keflex] 500 mg PO Q12H #10 cap 03/31/18 [Rx] Past Medical History - Past Health History Medical/Surgical History: Denies Medical/Surgical History HEENT History: Reports: None Cardiovascular History: Reports: None Respiratory History: Reports: Asthma Other Respiratory History: asthma as a child but outgrew it Gastrointestinal History: Reports: None Genitourinary History: Reports: None Musculoskeletal History: Reports: None Neurological History: Reports: Migraines Psychiatric History: Reports: None Endocrine/Metabolic History: Reports: None Hematologic History: Reports: None Immunologic History: Reports: None Oncologic (Cancer) History: Reports: None Dermatologic History: Reports: None - Infectious Disease History Infectious Disease History: Reports: Chicken Pox - Past Surgical History Head Surgeries/Procedures: Reports: None Social & Family History - Family History Family Medical History: Noncontributory Cardiac: Reports: MA Other Cardiac Family History: father - Tobacco Use Smoking Status *Q: Never Smoker Second Hand Smoke Exposure: Yes - Caffeine Use Caffeine Use: Reports: None - Alcohol Use Days Per Week of Alcohol Use: 1 Number of Drinks Per Day: 2 Total Drinks Per Week: 2 Date of Last Drink: 03/26/18 - Recreational Drug Use Recreational Drug Use: No H&P Review of Systems - Review of Systems: Review Of Systems: ROS reveals no pertinent complaints other than HPI. Exam - Exam Exam: See Below - Vital Signs Vital Signs: Last Vital Signs Temp 36.8 C 03/29/18 21:22 Pulse 101 H 03/29/18 21:22 Resp 19 03/29/18 21:22 BP 109/56 L 03/29/18 21:22 Pulse Ox 96 03/29/18 21:22 Weight: 55.474 kg - Exam General: Alert, Oriented HEENT: Mucosa Moist & [place] Neck: Supple Lungs: Clear to Auscultation, Normal Respiratory Effort Cardiovascular: Regular Rate, Regular Rhythm GI/Abdominal Exam: Normal Bowel Sounds, Soft, Non-Tender Extremities: Non-Tender, No Pedal Edema Skin: Warm, Dry, Intact - Patient Data Lab Results Last 24 hrs: Laboratory Results - last 24 hr 03/29/18 03/29/18 03/29/18 Range/Units 18:28 18:28 18:28 WBC 30.48 H (4.0-11.0) K/uL RBC 5.21 (4.50-5.90) M/uL Hgb 15.3 (13.0-17.0) g/dL Hct 45.3 (38.0-50.0) % MCV 86.9 (80.0-98.0) fL MCH 29.4 (27.0-32.0) pg MCHC 33.8 (31.0-37.0) g/dL RDW Std Deviation 42.5 (28.0-62.0) fl RDW Coeff of Yair 13 (11.0-15.0) % Plt Count 245 (150-400) K/uL MPV 11.20 (7.40-12.00) fL Add Manual Diff YES Neutrophils % (Manual) 85 H (48.0-80.0) % Band Neutrophils % 10 % Lymphocytes % (Manual) 3 L (16.0-40.0) % Monocytes % (Manual) 2 (0.0-15.0) % Nucleated RBC % 0.0 /100WBC Absolute Seg Neuts 25.9 H (1.4-5.7) Band Neutrophils # 3.0 Lymphocytes # (Manual) 0.9 (0.6-2.4) Monocytes # (Manual) 0.6 (0.0-0.8) Nucleated RBCs # 0 K/uL Lactate 1.3 (0.20-2.00) mmol/L Sodium 135 L (136-148) mmol/L Potassium 3.7 (3.5-5.1) mmol/L Chloride 99 (98-107) mmol/L Carbon Dioxide 25.4 (21.0-32.0) mmol/L BUN 13 (7.0-18.0) mg/dL Creatinine 1.2 (0.8-1.3) mg/dL Est Cr Clr Drug Dosing 74.97 mL/min Estimated GFR (MDRD) > 60.0 ml/min Glucose 112 H (74-106) mg/dL Calcium 8.9 (8.5-10.1) mg/dL Total Bilirubin 1.1 H (0.2-1.0) mg/dL AST 50 H (15-37) IU/L ALT 55 (14-63) IU/L Alkaline Phosphatase 82 (46-116) U/L Creatine Kinase 121 (26-308) U/L Total Protein 7.5 (6.4-8.2) g/dL Albumin 4.0 (3.4-5.0) g/dL Globulin 3.5 (2.0-3.5) g/dL Albumin/Globulin Ratio 1.1 L (1.3-2.8) Urine Color Urine Appearance Urine pH (5.0-8.0) Ur Specific [place] (1.001-1.035) Urine Protein (NEGATIVE) mg/dL Urine Glucose (UA) (NEGATIVE) mg/dL Urine Ketones (NEGATIVE) mg/dL Urine Occult Blood (NEGATIVE) Urine Nitrite (NEGATIVE) Urine Bilirubin (NEGATIVE) Urine Ictotest Urine Urobilinogen (<2.0) EU/dL Ur Leukocyte Esterase (NEGATIVE) Urine RBC (0-2/HPF) Urine WBC (0-5/HPF) Ur Epithelial Cells (NONE-FEW) Urine Bacteria (NEGATIVE) Urine Mucus (NONE-MOD) 03/29/18 Range/Units 19:24 WBC (4.0-11.0) K/uL RBC (4.50-5.90) M/uL Hgb (13.0-17.0) g/dL Hct (38.0-50.0) % MCV (80.0-98.0) fL MCH (27.0-32.0) pg MCHC (31.0-37.0) g/dL RDW Std Deviation (28.0-62.0) fl RDW Coeff of Yair (11.0-15.0) % Plt Count (150-400) K/uL MPV (7.40-12.00) fL Add Manual Diff Neutrophils % (Manual) (48.0-80.0) % Band Neutrophils % % Lymphocytes % (Manual) (16.0-40.0) % Monocytes % (Manual) (0.0-15.0) % Nucleated RBC % /100WBC Absolute Seg Neuts (1.4-5.7) Band Neutrophils # Lymphocytes # (Manual) (0.6-2.4) Monocytes # (Manual) (0.0-0.8) Nucleated RBCs # K/uL Lactate (0.20-2.00) mmol/L Sodium (136-148) mmol/L Potassium (3.5-5.1) mmol/L Chloride (98-107) mmol/L Carbon Dioxide (21.0-32.0) mmol/L BUN (7.0-18.0) mg/dL Creatinine (0.8-1.3) mg/dL Est Cr Clr Drug Dosing mL/min Estimated GFR (MDRD) ml/min Glucose (74-106) mg/dL Calcium (8.5-10.1) mg/dL Total Bilirubin (0.2-1.0) mg/dL AST (15-37) IU/L ALT (14-63) IU/L Alkaline Phosphatase (46-116) U/L Creatine Kinase (26-308) U/L Total Protein (6.4-8.2) g/dL Albumin (3.4-5.0) g/dL Globulin (2.0-3.5) g/dL Albumin/Globulin Ratio (1.3-2.8) Urine Color YELLOW Urine Appearance SLT CLOUDY Urine pH 6.0 (5.0-8.0) Ur Specific [place] 1.020 (1.001-1.035) Urine Protein 30 (NEGATIVE) mg/dL Urine Glucose (UA) NEGATIVE (NEGATIVE) mg/dL Urine Ketones 15 H (NEGATIVE) mg/dL Urine Occult Blood NEGATIVE (NEGATIVE) Urine Nitrite POSITIVE H (NEGATIVE) Urine Bilirubin MODERATE H (NEGATIVE) Urine Ictotest NEGATIVE Urine Urobilinogen 1.0 (<2.0) EU/dL Ur Leukocyte Esterase NEGATIVE (NEGATIVE) Urine RBC 0-2 (0-2/HPF) Urine WBC 4-8 (0-5/HPF) Ur Epithelial Cells FEW (NONE-FEW) Urine Bacteria 1+ H (NEGATIVE) Urine Mucus MANY (NONE-MOD) Result Diagrams: 03/31/18 06:08 03/31/18 06:08 Wyatt Results Last 24 hrs: Microbiology 03/29/18 18:25 Group A Streptococcus Rapid Screen - Final Throat NEGATIVE STREP A SCREEN Problem List Initiated/Reviewed/Updated: Yes Orders Last 24hrs: Active Orders 24 hr Category Date Time Status Patient Status [ADT] Stat ADT 03/29/18 20:03 Active Oxygen Therapy [RC] PRN Care 03/29/18 23:07 Ordered RT Aerosol Therapy [RC] ASDIRECTED Care 03/29/18 18:56 Active Up ad Mattie [RC] ASDIRECTED Care 03/29/18 23:07 Ordered VTE/DVT Education [RC] PER UNIT ROUTINE Care 03/29/18 23:07 Ordered Vital Signs [RC] Q4H Care 03/29/18 23:07 Ordered Regular Diet [DIET] Diet 03/29/18 Breakfast Ordered Chest 2V [CR] Stat Exams 03/29/18 18:46 Taken BASIC METABOLIC PANEL,BMP [CHEM] AM Lab 03/30/18 05:11 Ordered CBC WITH AUTO DIFF [HEME] AM Lab 03/30/18 05:11 Ordered CULTURE BLOOD [BC] Stat Lab 03/29/18 20:18 Received CULTURE BLOOD [BC] Stat Lab 03/29/18 20:18 Received CULTURE STREP A CONFIRMATION [RM] Stat Lab 03/29/18 18:25 Results CULTURE URINE [RM] Stat Lab 03/29/18 19:24 Received STREP SCRN A RAPID W CULT CONF [RM] Stat Lab 03/29/18 18:25 Ordered UA W/MICROSCOPIC [URIN] Stat Lab 03/29/18 19:24 Ordered Acetaminophen [Tylenol] Med 03/29/18 23:07 Ordered 650 mg PO Q4H PRN Ondansetron [Zofran] Med 03/29/18 23:07 Ordered 4 mg IVPUSH Q4H PRN Sodium Chloride 0.9% [Normal Saline] 1,000 ml Med 03/29/18 23:15 Ordered IV ASDIRECTED Sodium Chloride 0.9% [Saline Flush] Med 03/29/18 18:16 Active 10 ml FLUSH ASDIRECTED PRN Sodium Chloride 0.9% [Saline Flush] Med 03/29/18 18:15 Active 2.5 ml FLUSH ASDIRECTED PRN cefTRIAXone [Rocephin in Dextrose,Iso-Osm 1 GM/50 ML] 1 Med 03/29/18 23:15 Active gm Premix Bag 1 bag IV Q24H Blood Culture x2 Reflex Set [OM.PC] Stat Oth 03/29/18 19:53 Ordered Sequential Compression Device [OM.PC] Per Unit Routine Oth 03/29/18 23:07 Ordered Resuscitation Status Routine Resus Stat 03/29/18 23:07 Ordered Medication Orders Ceftriaxone Sodium/Dextrose 1 (gm/ Premix) 50 mls @ 100 mls/hr IV Q24H ALYSA Sodium Chloride (Saline Flush) 2.5 ml FLUSH ASDIRECTED PRN PRN Reason: Keep Vein Open Sodium Chloride (Saline Flush) 10 ml FLUSH ASDIRECTED PRN PRN Reason: Keep Vein Open Assessment/Plan Comment:: 22 yo male who presents with fevers, and leukocytosis. Patients UA is nitrate positive with +1 bacteria suggestive of UTI. We will treat with Rocephin.
[2018-03-29] MEDS: Sodium Chloride 0.9% 1,000 ML IV SCH (23:39)
[2018-03-29] MEDS: cefTRIAXone 1 GM in Premix Bag 1 BAG IV SCH (23:40)
[2018-03-29] MEDS: Acetaminophen 325 MG Tab PO PRN (23:43)
[2018-03-30] MEDS: Acetaminophen 325 MG Tab PO PRN ×3 (04:08→22:35)
[2018-03-30] MEDS: Sodium Chloride 0.9% 1,000 ML IV SCH ×3 (05:59→20:12)
[2018-03-30 06:15] LABS: CHLORIDE,CL 107 mmol/L (98-107); SODIUM,NA 139 mmol/L (136-148)
[2018-03-30] MEDS ORDERED: Azithromycin 250 MG Tab PO ONE (11:19)
--- NOTE | 2018-03-30 11:42 | PCM.PN ---
- General Info Date of Service: 03/30/18 - Review of Systems Systems Review Comment:: feeling better - Patient Data Vitals - Most Recent: Last Vital Signs Temp 37.0 C 03/30/18 08:00 Pulse 89 03/30/18 03:07 Resp 16 03/30/18 08:00 BP 94/52 L 03/30/18 08:00 Pulse Ox 93 L 03/30/18 08:00 Weight - Most Recent: 55.474 kg I&O - Last 24 Hours: Intake & Output 03/29/18 03/30/18 03/30/18 22:59 06:59 14:59 Intake Total 300 Output Total 825 Balance -525 Lab Results Last 24 Hours: Laboratory Results - last 24 hr 03/29/18 03/29/18 03/29/18 Range/Units 18:28 18:28 18:28 WBC 30.48 H (4.0-11.0) K/uL RBC 5.21 (4.50-5.90) M/uL Hgb 15.3 (13.0-17.0) g/dL Hct 45.3 (38.0-50.0) % MCV 86.9 (80.0-98.0) fL MCH 29.4 (27.0-32.0) pg MCHC 33.8 (31.0-37.0) g/dL RDW Std Deviation 42.5 (28.0-62.0) fl RDW Coeff of Yair 13 (11.0-15.0) % Plt Count 245 (150-400) K/uL MPV 11.20 (7.40-12.00) fL Neut % (Auto) (48.0-80.0) % Lymph % (Auto) (16.0-40.0) % [place] % (Auto) (0.0-15.0) % Eos % (Auto) (0.0-7.0) % Baso % (Auto) (0.0-1.5) % Neut # (Auto) (1.4-5.7) K/uL Lymph # (Auto) (0.6-2.4) K/uL [place] # (Auto) (0.0-0.8) K/uL Eos # (Auto) (0.0-0.7) K/uL Baso # (Auto) (0.0-0.1) K/uL Add Manual Diff YES Neutrophils % (Manual) 85 H (48.0-80.0) % Band Neutrophils % 10 % Lymphocytes % (Manual) 3 L (16.0-40.0) % Monocytes % (Manual) 2 (0.0-15.0) % Nucleated RBC % 0.0 /100WBC Absolute Seg Neuts 25.9 H (1.4-5.7) Band Neutrophils # 3.0 Lymphocytes # (Manual) 0.9 (0.6-2.4) Monocytes # (Manual) 0.6 (0.0-0.8) Nucleated RBCs # 0 K/uL Lactate 1.3 (0.20-2.00) mmol/L Sodium 135 L (136-148) mmol/L Potassium 3.7 (3.5-5.1) mmol/L Chloride 99 (98-107) mmol/L Carbon Dioxide 25.4 (21.0-32.0) mmol/L BUN 13 (7.0-18.0) mg/dL Creatinine 1.2 (0.8-1.3) mg/dL Est Cr Clr Drug Dosing 74.97 mL/min Estimated GFR (MDRD) > 60.0 ml/min Glucose 112 H (74-106) mg/dL Calcium 8.9 (8.5-10.1) mg/dL Total Bilirubin 1.1 H (0.2-1.0) mg/dL AST 50 H (15-37) IU/L ALT 55 (14-63) IU/L Alkaline Phosphatase 82 (46-116) U/L Creatine Kinase 121 (26-308) U/L Total Protein 7.5 (6.4-8.2) g/dL Albumin 4.0 (3.4-5.0) g/dL Globulin 3.5 (2.0-3.5) g/dL Albumin/Globulin Ratio 1.1 L (1.3-2.8) Urine Color Urine Appearance Urine pH (5.0-8.0) Ur Specific [place] (1.001-1.035) Urine Protein (NEGATIVE) mg/dL Urine Glucose (UA) (NEGATIVE) mg/dL Urine Ketones (NEGATIVE) mg/dL Urine Occult Blood (NEGATIVE) Urine Nitrite (NEGATIVE) Urine Bilirubin (NEGATIVE) Urine Ictotest Urine Urobilinogen (<2.0) EU/dL Ur Leukocyte Esterase (NEGATIVE) Urine RBC (0-2/HPF) Urine WBC (0-5/HPF) Ur Epithelial Cells (NONE-FEW) Urine Bacteria (NEGATIVE) Urine Mucus (NONE-MOD) 03/29/18 03/30/18 03/30/18 Range/Units 19:24 05:10 05:10 WBC 20.05 H (4.0-11.0) K/uL RBC 4.26 L (4.50-5.90) M/uL Hgb 12.3 L (13.0-17.0) g/dL Hct 37.4 L (38.0-50.0) % MCV 87.8 (80.0-98.0) fL MCH 28.9 (27.0-32.0) pg MCHC 32.9 (31.0-37.0) g/dL RDW Std Deviation 43.5 (28.0-62.0) fl RDW Coeff of Yair 14 (11.0-15.0) % Plt Count 209 (150-400) K/uL MPV 10.50 (7.40-12.00) fL Neut % (Auto) 91.8 H (48.0-80.0) % Lymph % (Auto) 3.9 L (16.0-40.0) % [place] % (Auto) 4.1 (0.0-15.0) % Eos % (Auto) 0.1 (0.0-7.0) % Baso % (Auto) 0.1 (0.0-1.5) % Neut # (Auto) 18.4 H (1.4-5.7) K/uL Lymph # (Auto) 0.8 (0.6-2.4) K/uL [place] # (Auto) 0.8 (0.0-0.8) K/uL Eos # (Auto) 0.0 (0.0-0.7) K/uL Baso # (Auto) 0.0 (0.0-0.1) K/uL Add Manual Diff Neutrophils % (Manual) (48.0-80.0) % Band Neutrophils % % Lymphocytes % (Manual) (16.0-40.0) % Monocytes % (Manual) (0.0-15.0) % Nucleated RBC % 0.0 /100WBC Absolute Seg Neuts (1.4-5.7) Band Neutrophils # Lymphocytes # (Manual) (0.6-2.4) Monocytes # (Manual) (0.0-0.8) Nucleated RBCs # 0 K/uL Lactate (0.20-2.00) mmol/L Sodium 139 (136-148) mmol/L Potassium 3.9 (3.5-5.1) mmol/L Chloride 107 (98-107) mmol/L Carbon Dioxide 25.4 (21.0-32.0) mmol/L BUN 13 (7.0-18.0) mg/dL Creatinine 1.0 (0.8-1.3) mg/dL Est Cr Clr Drug Dosing 91.69 mL/min Estimated GFR (MDRD) > 60.0 ml/min Glucose 109 H (74-106) mg/dL Calcium 8.2 L (8.5-10.1) mg/dL Total Bilirubin (0.2-1.0) mg/dL AST (15-37) IU/L ALT (14-63) IU/L Alkaline Phosphatase (46-116) U/L Creatine Kinase (26-308) U/L Total Protein (6.4-8.2) g/dL Albumin (3.4-5.0) g/dL Globulin (2.0-3.5) g/dL Albumin/Globulin Ratio (1.3-2.8) Urine Color YELLOW Urine Appearance SLT CLOUDY Urine pH 6.0 (5.0-8.0) Ur Specific [place] 1.020 (1.001-1.035) Urine Protein 30 (NEGATIVE) mg/dL Urine Glucose (UA) NEGATIVE (NEGATIVE) mg/dL Urine Ketones 15 H (NEGATIVE) mg/dL Urine Occult Blood NEGATIVE (NEGATIVE) Urine Nitrite POSITIVE H (NEGATIVE) Urine Bilirubin MODERATE H (NEGATIVE) Urine Ictotest NEGATIVE Urine Urobilinogen 1.0 (<2.0) EU/dL Ur Leukocyte Esterase NEGATIVE (NEGATIVE) Urine RBC 0-2 (0-2/HPF) Urine WBC 4-8 (0-5/HPF) Ur Epithelial Cells FEW (NONE-FEW) Urine Bacteria 1+ H (NEGATIVE) Urine Mucus MANY (NONE-MOD) Wyatt Results Last 24 Hours: Microbiology 03/29/18 18:25 Group A Streptococcus Rapid Screen - Final Throat NEGATIVE STREP A SCREEN Med Orders - Current: Current Medications Acetaminophen (Tylenol) 650 mg PO Q4H PRN PRN Reason: Pain (Mild 1-3)/fever Last Admin: 03/30/18 04:08 Dose: 650 mg Ceftriaxone Sodium/Dextrose 1 (gm/ Premix) 50 mls @ 100 mls/hr IV Q24H [facility] Last Admin: 03/29/18 23:40 Dose: 100 mls/hr Sodium Chloride (Normal Saline) 1,000 mls @ 150 mls/hr IV ASDIRECTED [facility] Last Admin: 03/30/18 05:59 Dose: 150 mls/hr Ondansetron HCl (Zofran) 4 mg IVPUSH Q4H PRN PRN Reason: Nausea Sodium Chloride (Saline Flush) 2.5 ml FLUSH ASDIRECTED PRN PRN Reason: Keep Vein Open Sodium Chloride (Saline Flush) 10 ml FLUSH ASDIRECTED PRN PRN Reason: Keep Vein Open Discontinued Medications Albuterol/Ipratropium (Duoneb 3.0-0.5 Mg/3 Ml) 3 ml NEB ONETIME ONE Stop: 03/29/18 18:56 Last Admin: 03/29/18 19:17 Dose: 3 ml Azithromycin (Zithromax) 1,000 mg PO Q24H ONE Stop: 03/30/18 11:20 Sodium Chloride (Normal Saline) 1,000 mls @ 999 mls/hr IV STAT ONE Stop: 03/29/18 19:11 Last Admin: 03/29/18 18:34 Dose: 999 mls/hr Sodium Chloride (Normal Saline) 1,000 mls @ 999 mls/hr IV .Bolus ONE Stop: 03/29/18 21:03 Last Admin: 03/29/18 20:05 Dose: 999 mls/hr Ceftriaxone Sodium 1 gm/ (Sodium Chloride) 50 mls @ 100 mls/hr IV Q24H [facility] Last Admin: 03/30/18 00:26 Dose: Not Given Ketorolac Tromethamine (Toradol) 30 mg IVPUSH ONETIME ONE Stop: 03/29/18 18:12 Last Admin: 03/29/18 18:35 Dose: 30 mg - Exam General: Alert, Oriented Neck: Supple Lungs: Clear to Auscultation, Normal Respiratory Effort Cardiovascular: Regular Rate, Regular Rhythm GI/Abdominal Exam: Normal Bowel Sounds, Soft, Non-Tender, No Organomegaly Back Exam: Normal Inspection, Full Range of Motion Extremities: Normal Range of Motion, Non-Tender, No Pedal Edema Skin: Warm, Dry, Intact - Problem List Review Problem List Initiated/Reviewed/Updated: Yes - My Orders Last 24 Hours: My Active Orders 03/29/18 23:07 Oxygen Therapy [RC] PRN Up ad Mattie [RC] ASDIRECTED VTE/DVT Education [RC] PER UNIT ROUTINE Vital Signs [RC] Q4H Acetaminophen [Tylenol] 650 mg PO Q4H PRN Ondansetron [Zofran] 4 mg IVPUSH Q4H PRN Sequential Compression Device [OM.PC] Per Unit Routine Resuscitation Status Routine 03/29/18 23:15 Sodium Chloride 0.9% [Normal Saline] 1,000 ml IV ASDIRECTED cefTRIAXone [Rocephin in Dextrose,Iso-Osm 1 GM/50 ML] 1 gm Premix Bag 1 bag IV Q24H - Plan Plan:: 22 yo male who presents with fevers, and leukocytosis. Patients UA is nitrate positive with +1 bacteria suggestive of UTI. We continue Rocephin. urine cultures pending. HIV,G&C tests pending.
--- NOTE | 2018-03-30 13:32 | CR ---
EXAM DATE: 03/29/18 PATIENT'S AGE: 22 Patient: JUANA ATKINSON Facility: [place], [place] Site . Site : 1996 Study: XRay Chest [id number] 7:03:40 PM Ordering Physician: Leno Mccormick Final Report: INDICATION: Fever, dizziness, nausea and chest pain. TECHNIQUE: Chest 2 views COMPARISON: 09/21/2017. FINDINGS: Cardiovascular and mediastinum: Heart size and vasculature are normal in caliber and appearance. Lungs and pleural spaces: Lungs are clear. No sign of infiltrate or mass. No sign of pleural effusion. No pneumothorax. Bones and soft tissues: No significant findings. IMPRESSION: No acute findings and no significant changes from the prior exam. Dictated by Bruce Stroud MD @ Mar 29 2018 7:11PM (Electronic Signature) Report Signed by Proxy. XIAO
[2018-03-30] MEDS: cefTRIAXone 1 GM in Premix Bag 1 BAG IV SCH (22:35)
[2018-03-31] MEDS: Sodium Chloride 0.9% 1,000 ML IV SCH (03:27)
[2018-03-31 06:45] LABS: CHLORIDE,CL 109 mmol/L (98-107); SODIUM,NA 141 mmol/L (136-148)
[2018-03-31 08:01] VITALS: BP 130/72
--- NOTE | 2018-03-31 09:15 | PCM.DCSUM1 ---
Discharge Summary - Discharge Data Discharge Date: 03/31/18 Discharge Disposition: Home, Self-Care 01 Condition: Stable - Patient Summary/Data Hospital Course: 22 yo male who was admitted for fevers, leukocyotosis and suspect UTI. He presented with two day history of fevers, chills, and myalgias. He reported nausea and has some pain with urination. His white blood cell count was 30,000. His UA was nitrate positive with +1 bacteria. He was treated with Rocephin and azithromycin. His white blood cell count and fevers resolved. His urine culture grew out mixed kulwinder. He was discharge home on Keflex to have follow up with Dr. Morris. - Discharge Plan Prescriptions/Med Rec: Cephalexin [Keflex] 500 mg PO Q12H #10 cap Home Medications: Home Meds Cephalexin [Keflex] 500 mg PO Q12H #10 cap 03/31/18 [Rx] Referrals: Tim Morris MD [Physician] - 04/04/18 4:30 pm - Patient Data Vitals - Most Recent: Last Vital Signs Temp 36.9 C 03/31/18 07:56 Pulse 87 03/31/18 07:56 Resp 12 03/31/18 07:56 BP 130/72 03/31/18 07:56 Pulse Ox 91 L 03/31/18 07:56 Weight - Most Recent: 55.474 kg I&O - Last 24 hours: Intake & Output 03/30/18 03/31/18 03/31/18 22:59 06:59 14:59 Intake Total 1724 3026 Output Total 2250 Balance 1724 776 Lab Results - Last 24 hrs: Laboratory Results - last 24 hr 03/30/18 03/31/18 03/31/18 Range/Units 05:10 06:08 06:08 WBC 8.31 (4.0-11.0) K/uL RBC 4.14 L (4.50-5.90) M/uL Hgb 11.9 L (13.0-17.0) g/dL Hct 36.6 L (38.0-50.0) % MCV 88.4 (80.0-98.0) fL MCH 28.7 (27.0-32.0) pg MCHC 32.5 (31.0-37.0) g/dL RDW Std Deviation 44.9 (28.0-62.0) fl RDW Coeff of Yair 14 (11.0-15.0) % Plt Count 205 (150-400) K/uL MPV 11.10 (7.40-12.00) fL Neut % (Auto) 71.5 (48.0-80.0) % Lymph % (Auto) 16.8 (16.0-40.0) % Wolfe % (Auto) 9.9 (0.0-15.0) % Eos % (Auto) 1.4 (0.0-7.0) % Baso % (Auto) 0.4 (0.0-1.5) % Neut # (Auto) 5.9 H (1.4-5.7) K/uL Lymph # (Auto) 1.4 (0.6-2.4) K/uL Wolfe # (Auto) 0.8 (0.0-0.8) K/uL Eos # (Auto) 0.1 (0.0-0.7) K/uL Baso # (Auto) 0.0 (0.0-0.1) K/uL Nucleated RBC % 0.0 /100WBC Nucleated RBCs # 0 K/uL Sodium 141 (136-148) mmol/L Potassium 3.8 (3.5-5.1) mmol/L Chloride 109 H (98-107) mmol/L Carbon Dioxide 25.6 (21.0-32.0) mmol/L BUN 5 L (7.0-18.0) mg/dL Creatinine 1.0 (0.8-1.3) mg/dL Est Cr Clr Drug Dosing 91.69 mL/min Estimated GFR (MDRD) > 60.0 ml/min Glucose 90 (74-106) mg/dL Calcium 8.1 L (8.5-10.1) mg/dL HIV 1&2 Ag/Ab, 4th Gen 0.1 (<1.0) SIMA Results - Last 24 hrs: Microbiology 03/29/18 18:25 Quick Strep Confirmation Culture - Final Throat NO GROUP A STREP ISOLATED Group A Streptococcus Rapid Screen - Final NEGATIVE STREP A SCREEN 03/29/18 19:24 Urine Culture - Final Urine, Clean Catch MIXED KULWINDER 10,000-100,000 CFU/ML 03/29/18 20:18 Aerobic Blood Culture - Preliminary Blood - Venous NO GROWTH AFTER 1 DAY Anaerobic Blood Culture - Preliminary NO GROWTH AFTER 1 DAY 03/29/18 20:18 Aerobic Blood Culture - Preliminary Blood - Venous - Lab Draw NO GROWTH AFTER 1 DAY Anaerobic Blood Culture - Preliminary NO GROWTH AFTER 1 DAY Med Orders - Current: Current Medications Acetaminophen (Tylenol) 650 mg PO Q4H PRN PRN Reason: Pain (Mild 1-3)/fever Last Admin: 03/30/18 22:35 Dose: 650 mg Ceftriaxone Sodium/Dextrose 1 (gm/ Premix) 50 mls @ 100 mls/hr IV Q24H [facility] Last Admin: 03/30/18 22:35 Dose: 100 mls/hr Sodium Chloride (Normal Saline) 1,000 mls @ 150 mls/hr IV ASDIRECTED [facility] Last Admin: 03/31/18 03:27 Dose: 150 mls/hr Ondansetron HCl (Zofran) 4 mg IVPUSH Q4H PRN PRN Reason: Nausea Sodium Chloride (Saline Flush) 2.5 ml FLUSH ASDIRECTED PRN PRN Reason: Keep Vein Open Sodium Chloride (Saline Flush) 10 ml FLUSH ASDIRECTED PRN PRN Reason: Keep Vein Open Discontinued Medications Albuterol/Ipratropium (Duoneb 3.0-0.5 Mg/3 Ml) 3 ml NEB ONETIME ONE Stop: 03/29/18 18:56 Last Admin: 03/29/18 19:17 Dose: 3 ml Azithromycin (Zithromax) 1,000 mg PO Q24H ONE Stop: 03/30/18 11:20 Last Admin: 03/30/18 11:49 Dose: 1,000 mg Sodium Chloride (Normal Saline) 1,000 mls @ 999 mls/hr IV STAT ONE Stop: 03/29/18 19:11 Last Admin: 03/29/18 18:34 Dose: 999 mls/hr Sodium Chloride (Normal Saline) 1,000 mls @ 999 mls/hr IV .Bolus ONE Stop: 03/29/18 21:03 Last Admin: 03/29/18 20:05 Dose: 999 mls/hr Ceftriaxone Sodium 1 gm/ (Sodium Chloride) 50 mls @ 100 mls/hr IV Q24H [facility] Last Admin: 03/30/18 00:26 Dose: Not Given Ketorolac Tromethamine (Toradol) 30 mg IVPUSH ONETIME ONE Stop: 03/29/18 18:12 Last Admin: 03/29/18 18:35 Dose: 30 mg
== END 2018-03-31 10:20 | disposition home or self-care (01) ==
LOC: MW.ED 17:20 → MW.MS 20:03
PROVIDERS: ADMIT Internal Medicine; ATTEND Internal Medicine
DX: D72.829 Elevated white blood cell count, unspecified (principal); R50.9 Fever, unspecified; B96.89 Other specified bacterial agents as the cause of diseases classified elsewhere; J45.909 Unspecified asthma, uncomplicated
CPT/HCPCS: 36415; 71046; 80048; 80053; 81001; 82550; 83605; 85025; 87040; 87081; 87086; 87389; 87491; 87591; 87880; 94640; 96361; 96365; 96366; 96375; 99285; A9270; G0378; J0696; J1885; J7040; 96374; 99283

== ENCOUNTER 2021-10-10 01:08 | Emergency (ER) | payer BC ==
[2021-10-10 02:06] VITALS: BP 150/79; PULSE 88
== END 2021-10-10 02:35 | disposition home or self-care (01) ==
LOC: MW.ED 01:08
DX: U07.1 COVID-19 (principal); Z91.030 Bee allergy status
CPT/HCPCS: 99283

== ENCOUNTER 2022-01-12 17:27 | Inpatient (IN) | payer BC ==
[2022-01-12] MEDS ORDERED: Ketorolac 30 MG/ML SDV IVPUSH ONE (17:43)
[2022-01-12] MEDS ORDERED: Sodium Chloride 0.9% 10 ML Syringe FLUSH PRN (17:43)
[2022-01-12] MEDS ORDERED: Sodium Chloride 0.9% 1,000 ML IV ONE (17:43)
[2022-01-12] MEDS ORDERED: Sodium Chloride 0.9% 2.5 ML Syringe FLUSH PRN (17:43)
[2022-01-12] MEDS ORDERED: Albuterol/Ipratropium 3.0-0.5 MG/3 ML Neb Soln NEB ONE (17:52)
[2022-01-12] MEDS ORDERED: Lidocaine 1% 50 ML MDV ONE (18:12)
[2022-01-12] MEDS ORDERED: LORazepam 2 MG/ML SDV ONE (18:13)
[2022-01-12] MEDS ORDERED: fentaNYL 50 MCG/ML SDV ONE (18:14)
[2022-01-12 18:16] LABS: BLOOD UREA NITROGEN,BUN 12 mg/dL (7.0-18.0); CARBON DIOXIDE,CO2 27.3 mmol/L (21.0-32.0); CHLORIDE,CL 102 mmol/L (98-107); GLUCOSE RANDOM 82 mg/dL (74-106); POTASSIUM,K 3.7 mmol/L (3.5-5.1); SODIUM,NA 139 mmol/L (136-148)
[2022-01-12] MEDS ORDERED: LORazepam 2 MG/ML SDV IVPUSH ONE (18:51)
[2022-01-12] MEDS ORDERED: fentaNYL 50 MCG/ML SDV IVPUSH ONE (18:53)
[2022-01-12] MEDS ORDERED: Lidocaine 1% 5 ML VIAL INJECT ONE (18:54)
[2022-01-12] MEDS ORDERED: Ondansetron 4 MG/2 ML SDV IVPUSH PRN (20:37)
[2022-01-12] MEDS: Lactated Ringers 1,000 ML IV SCH (21:18)
[2022-01-12] MEDS: Morphine 2 MG/ML SYRINGE IVPUSH PRN (23:24)
[2022-01-13] MEDS: Morphine 2 MG/ML SYRINGE IVPUSH PRN ×4 (02:31→19:49)
[2022-01-13] MEDS: Lactated Ringers 1,000 ML IV SCH ×3 (05:34→23:57)
[2022-01-13 07:19] LABS: BLOOD UREA NITROGEN,BUN 9 mg/dL (7.0-18.0); CARBON DIOXIDE,CO2 24.1 mmol/L (21.0-32.0); CHLORIDE,CL 107 mmol/L (98-107); GLUCOSE RANDOM 103 mg/dL (74-106); POTASSIUM,K 3.5 mmol/L (3.5-5.1); SODIUM,NA 140 mmol/L (136-148)
[2022-01-13] MEDS ORDERED: Iopamidol 755 MG/ML 500 ML Multipack Bottle IVPUSH STA (07:45)
[2022-01-13] MEDS: Pantoprazole 40 MG in Sodium Chloride 0.9% 10 ML IVPUSH SCH (09:57)
[2022-01-13] MEDS: Albuterol/Ipratropium 3.0-0.5 MG/3 ML Neb Soln NEB PRN (16:11)
[2022-01-14] MEDS: Morphine 2 MG/ML SYRINGE IVPUSH PRN ×4 (06:28→23:48)
[2022-01-14 06:42] LABS: BLOOD UREA NITROGEN,BUN 4 mg/dL (7.0-18.0); CARBON DIOXIDE,CO2 25.7 mmol/L (21.0-32.0); CHLORIDE,CL 108 mmol/L (98-107); GLUCOSE RANDOM 94 mg/dL (74-106); POTASSIUM,K 3.8 mmol/L (3.5-5.1); SODIUM,NA 141 mmol/L (136-148)
[2022-01-14] MEDS: Albuterol/Ipratropium 3.0-0.5 MG/3 ML Neb Soln NEB PRN (07:27)
[2022-01-14] MEDS: Pantoprazole 40 MG in Sodium Chloride 0.9% 10 ML IVPUSH SCH (08:16)
[2022-01-14] MEDS: Lactated Ringers 1,000 ML IV SCH (09:10)
[2022-01-14] MEDS: Polyethylene Glycol 3350 Powder 17 GM Packet PO SCH (23:41)
[2022-01-15] MEDS: Morphine 2 MG/ML SYRINGE IVPUSH PRN ×4 (03:12→14:23)
[2022-01-15] MEDS: Pantoprazole 40 MG in Sodium Chloride 0.9% 10 ML IVPUSH SCH (08:21)
[2022-01-15] MEDS: Polyethylene Glycol 3350 Powder 17 GM Packet PO SCH (08:22)
[2022-01-15 16:32] VITALS: BP 112/67; PULSE 60
== END 2022-01-15 16:30 | disposition home or self-care (01) | DRG 143 ==
LOC: MW.ED 17:27 → MW.MS 19:12
PROVIDERS: ADMIT Student in an Organized Health Care Education/Training Program; ATTEND Student in an Organized Health Care Education/Training Program
PROC: 0W9930Z Drainage of Right Pleural Cavity with Drainage Device, Percutaneous Approach (ICD-10-PCS; principal; 2022-01-12)
DX: J93.83 Other pneumothorax (principal); J45.909 Unspecified asthma, uncomplicated; F17.210 Nicotine dependence, cigarettes, uncomplicated; Z20.822 Contact with and (suspected) exposure to COVID-19; Z90.49 Acquired absence of other specified parts of digestive tract
CPT/HCPCS: 36415; 71045; 71045-26; 71046; 71046-26; 71260; 71260-26; 80048; 80053; 82947; 83735; 84100; 84484; 85025; 85379; 93005; 94640; 96374; 96375; 99284; 99285-25; A9270-GY; C9113; J1885; J2001; J2060; J2270; J3010; J3490; J7030; J7120; J7620-GY; Q9967; U0002

== ENCOUNTER 2022-08-31 21:07 | Emergency (ER) | payer BC ==
[2022-08-31] MEDS ORDERED: Ibuprofen 600 MG Tab PO ONE (21:30)
[2022-08-31] MEDS ORDERED: Acetaminophen/HYDROcodone 325-10 MG Tab PO ONE (21:30)
[2022-08-31] MEDS ORDERED: Penicillin V Potassium 500 MG Tab PO STA (21:30)
[2022-08-31 21:51] VITALS: BP 140/84; PULSE 99
== END 2022-08-31 21:46 | disposition home or self-care (01) ==
LOC: MW.ED 21:07
DX: K08.89 Other specified disorders of teeth and supporting structures (principal); J45.909 Unspecified asthma, uncomplicated; Z91.030 Bee allergy status
CPT/HCPCS: 99282; A9270

== ENCOUNTER 2022-10-03 11:04 | Emergency (ER) | payer BC ==
[2022-10-03] MEDS ORDERED: Sodium Chloride 0.9% 10 ML Syringe FLUSH PRN (11:14)
[2022-10-03] MEDS ORDERED: Sodium Chloride 0.9% 2.5 ML Syringe FLUSH PRN (11:14)
[2022-10-03] MEDS ORDERED: Sodium Chloride 0.9% 1,000 ML IV ONE (11:14)
[2022-10-03 11:59] LABS: CARBON DIOXIDE,CO2 30.5 mmol/L (21.0-32.0); POTASSIUM,K 3.7 mmol/L (3.5-5.1)
[2022-10-03 12:57] LABS: CORONAVIRUS COVID-19 NAA NEGATIVE (NEGATIVE); INFLUENZA A NAA NEGATIVE (NEGATIVE); INFLUENZA B NAA NEGATIVE (NEGATIVE); RESPIRATORY SYNCYTIAL VIR NAA NEGATIVE (NEGATIVE)
[2022-10-03 13:33] VITALS: BP 102/62; PULSE 64
== END 2022-10-03 13:31 | disposition home or self-care (01) ==
LOC: MW.ED 11:04
DX: E86.0 Dehydration (principal); R55 Syncope and collapse; J45.909 Unspecified asthma, uncomplicated; Z91.030 Bee allergy status; Z79.899 Other long term (current) drug therapy; Z20.822 Contact with and (suspected) exposure to COVID-19
CPT/HCPCS: 0241U; 36415; 71045; 80053; 80307; 81001; 83690; 84484; 85025; 93005; 96360; 99285; J3490; J7030

== ENCOUNTER 2024-07-21 13:14 | Emergency (ER) | payer BC ==
[2024-07-21] MEDS ORDERED: Sodium Chloride 0.9% 2.5 ML Syringe FLUSH PRN (14:00)
[2024-07-21 14:35] LABS: BASOPHILS ABSOLUTE AUTO 0.09 K/uL (0.00-0.20); BASOPHILS PERCENT AUTO 0.6 % (0.0-1.0); EOSINOPHILS PERCENT AUTO 1.2 % (0.0-6.0); HEMATOCRIT 49.4 % (42.0-52.0); HEMOGLOBIN 16.8 g/dL (14.0-18.0); IMMATURE GRAN ABSOLUTE AUTO 0.05 K/uL (0.00-0.05); IMMATURE GRAN PERCENT AUTO 0.3 % (0.0-0.4); LYMPHOCYTES ABSOLUTE AUTO 1.43 K/uL (1.00-4.80); LYMPHOCYTES PERCENT AUTO 8.8 % (24.0-44.0); MEAN CORPUSCULAR HEMOGLOBIN 29.3 pg (28.0-32.0); MEAN CORPUSCULAR VOLUME 86.1 fL (83.0-99.0); MEAN PLATELET VOLUME 9.8 fL (9.4-12.4); MONOCYTES ABSOLUTE AUTO 1.13 K/uL (0.00-0.80); NEUTROPHILS ABSOLUTE AUTO 13.35 K/uL (1.80-7.70); NEUTROPHILS PERCENT AUTO 82.1 % (41.0-71.0); PLATELET COUNT,PLT 324 K/uL (150-400); RED BLOOD CELL COUNT 5.74 M/uL (4.52-5.90); WHITE BLOOD CELL COUNT,WBC 16.25 K/uL (3.9-11.3)
[2024-07-21] MEDS: Sodium Chloride 0.9% 1,000 ML IV ONE (14:42)
[2024-07-21] MEDS: Ondansetron 4 MG/2 ML SDV IVPUSH ONE (14:42)
[2024-07-21] MEDS: Sodium Chloride 0.9% 10 ML Syringe FLUSH PRN (14:42)
[2024-07-21 15:00] LABS: A/G RATIO 1.2 (0.9-1.6); ALBUMIN 4.8 g/dL (3.4-5.0); BILIRUBIN TOTAL 0.5 mg/dL (0.2-1.0); CALCIUM 9.8 mg/dL (8.5-10.1); CARBON DIOXIDE,CO2 25.6 mmol/L (21.0-32.0); CREATININE 1.1 mg/dL (0.8-1.3); EST CRCL DRUG DOSING (CG) 84.13 mL/min; MAGNESIUM 1.8 mg/dL (1.8-2.4); POTASSIUM,K 4.1 mmol/L (3.5-5.1); PROTEIN TOTAL,TP 8.9 g/dL (6.4-8.2)
[2024-07-21 16:50] VITALS: BP 112/75; PULSE 84
== END 2024-07-21 16:50 | disposition home or self-care (01) ==
LOC: MW.ED 13:14
DX: A08.4 Viral intestinal infection, unspecified (principal); E86.0 Dehydration; J45.909 Unspecified asthma, uncomplicated; Z90.49 Acquired absence of other specified parts of digestive tract; Z91.030 Bee allergy status; Z75.8 Other problems related to medical facilities and other health care
CPT/HCPCS: 36415; 80053; 83690; 83735; 85025; 96361; 96374; 99284; J2405; J3490; J7030

== ENCOUNTER 2024-10-14 21:37 | Emergency (ER) | payer BC ==
[2024-10-14] MEDS ORDERED: Sodium Chloride 0.9% 20 ML SDV IV PRN (21:52)
[2024-10-14 22:02] LABS: BASOPHILS PERCENT AUTO 0.8 % (0.0-1.0); EOSINOPHILS ABSOLUTE AUTO 0.39 K/uL (0.00-0.45); EOSINOPHILS PERCENT AUTO 3.3 % (0.0-6.0); HEMATOCRIT 41.7 % (42.0-52.0); HEMOGLOBIN 14.2 g/dL (14.0-18.0); IMMATURE GRAN ABSOLUTE AUTO 0.02 K/uL (0.00-0.05); IMMATURE GRAN PERCENT AUTO 0.2 % (0.0-0.4); LYMPHOCYTES ABSOLUTE AUTO 3.34 K/uL (1.00-4.80); LYMPHOCYTES PERCENT AUTO 28.2 % (24.0-44.0); MEAN CORPUSCULAR HEMOGLOBIN 28.9 pg (28.0-32.0); MEAN CORPUSCULAR HGB CONC 34.1 g/dL (32.0-36.0); MEAN CORPUSCULAR VOLUME 84.9 fL (83.0-99.0); MEAN PLATELET VOLUME 10.6 fL (9.4-12.4); MONOCYTES ABSOLUTE AUTO 0.68 K/uL (0.00-0.80); MONOCYTES PERCENT AUTO 5.7 % (0.0-8.0); NEUTROPHILS ABSOLUTE AUTO 7.31 K/uL (1.80-7.70); NEUTROPHILS PERCENT AUTO 61.8 % (41.0-71.0); PLATELET COUNT,PLT 294 K/uL (150-400); RED BLOOD CELL COUNT 4.91 M/uL (4.52-5.90); WHITE BLOOD CELL COUNT,WBC 11.84 K/uL (3.9-11.3)
[2024-10-14] MEDS: Meclizine 25 MG Tab PO ONE (22:05)
[2024-10-14] MEDS: Sodium Chloride 0.9% 10 ML Syringe FLUSH PRN (22:08)
[2024-10-14] MEDS: Sodium Chloride 0.9% 2.5 ML Syringe FLUSH PRN (22:08)
[2024-10-14 22:28] LABS: BLOOD UREA NITROGEN,BUN 7 mg/dL (7.0-18.0); CALCIUM 9.1 mg/dL (8.5-10.1); CARBON DIOXIDE,CO2 26.2 mmol/L (21.0-32.0); CHLORIDE,CL 105 mmol/L (98-107); CREATININE 0.9 mg/dL (0.8-1.3); GLUCOSE RANDOM 99 mg/dL (74-106); POTASSIUM,K 3.2 mmol/L (3.5-5.1); SODIUM,NA 141 mmol/L (136-148)
[2024-10-14 22:30] LABS: ESTIMATED GFR 119 mL/min (>60)
[2024-10-14] MEDS: Potassium Chloride 20 MEQ Tab.ER PO ONE (23:02)
[2024-10-15 01:25] VITALS: BP 126/72; PULSE 67
== END 2024-10-15 01:23 | disposition home or self-care (01) ==
LOC: MW.ED 21:37
DX: R42 Dizziness and giddiness (principal); E87.6 Hypokalemia; R55 Syncope and collapse; Z90.49 Acquired absence of other specified parts of digestive tract; F17.210 Nicotine dependence, cigarettes, uncomplicated; Z91.030 Bee allergy status
CPT/HCPCS: 36415; 71045; 80048; 82947; 84484; 85025; 93005; 99285; A9270; J3490

== ENCOUNTER 2024-11-08 16:14 | Emergency (ER) | payer BC ==
[2024-11-08] MEDS ORDERED: Sodium Chloride 0.9% 2.5 ML Syringe FLUSH PRN (16:24)
[2024-11-08] MEDS ORDERED: Sodium Chloride 0.9% 10 ML Syringe FLUSH PRN (16:24)
[2024-11-08] MEDS: Sodium Chloride 0.9% 1,000 ML IV STA (17:07)
[2024-11-08 17:13] LABS: BASOPHILS ABSOLUTE AUTO 0.05 K/uL (0.00-0.20); BASOPHILS PERCENT AUTO 0.5 % (0.0-1.0); EOSINOPHILS ABSOLUTE AUTO 0.08 K/uL (0.00-0.45); EOSINOPHILS PERCENT AUTO 0.8 % (0.0-6.0); HEMATOCRIT 42.8 % (42.0-52.0); HEMOGLOBIN 14.3 g/dL (14.0-18.0); IMMATURE GRAN ABSOLUTE AUTO 0.05 K/uL (0.00-0.05); IMMATURE GRAN PERCENT AUTO 0.5 % (0.0-0.4); LYMPHOCYTES ABSOLUTE AUTO 1.52 K/uL (1.00-4.80); LYMPHOCYTES PERCENT AUTO 15.4 % (24.0-44.0); MEAN CORPUSCULAR HEMOGLOBIN 28.8 pg (28.0-32.0); MEAN CORPUSCULAR HGB CONC 33.4 g/dL (32.0-36.0); MEAN CORPUSCULAR VOLUME 86.1 fL (83.0-99.0); MEAN PLATELET VOLUME 10.2 fL (9.4-12.4); MONOCYTES ABSOLUTE AUTO 0.57 K/uL (0.00-0.80); MONOCYTES PERCENT AUTO 5.8 % (0.0-8.0); NEUTROPHILS ABSOLUTE AUTO 7.57 K/uL (1.80-7.70); PLATELET COUNT,PLT 275 K/uL (150-400); RED BLOOD CELL COUNT 4.97 M/uL (4.52-5.90); WHITE BLOOD CELL COUNT,WBC 9.84 K/uL (3.9-11.3)
[2024-11-08 17:56] LABS: A/G RATIO 1.2 (0.9-1.6); ALANINE AMINOTRANSFERASE,ALT 28 IU/L (14-63); ALBUMIN 4.3 g/dL (3.4-5.0); ALKALINE PHOSPHATASE 64 U/L (46-116); ASPARTATE AMNIOTRANSFERASE,AST 17 IU/L (15-37); BILIRUBIN TOTAL 0.3 mg/dL (0.2-1.0); BLOOD UREA NITROGEN,BUN 12 mg/dL (7.0-18.0); CARBON DIOXIDE,CO2 25.6 mmol/L (21.0-32.0); CHLORIDE,CL 102 mmol/L (98-107); CREATININE 0.8 mg/dL (0.8-1.3); EST CRCL DRUG DOSING (CG) 111.81 mL/min; GLUCOSE RANDOM 86 mg/dL (74-106); LIPASE 23 U/L (16-77); MAGNESIUM 2.1 mg/dL (1.8-2.4); POTASSIUM,K 3.7 mmol/L (3.5-5.1); PROTEIN TOTAL,TP 7.9 g/dL (6.4-8.2); SODIUM,NA 141 mmol/L (136-148)
[2024-11-08 17:57] LABS: ESTIMATED GFR 124 mL/min (>60)
[2024-11-08] MEDS: Iopamidol 755 MG/ML 500 ML Multipack Bottle IVPUSH STA (18:45)
[2024-11-08 19:36] LABS: APPEARANCE,URINE CLEAR; BILIRUBIN,URINE NEGATIVE (NEGATIVE); COLOR,URINE YELLOW; GLUCOSE,URINE NEGATIVE (NEGATIVE); KETONES,URINE 15 mg/dL (NEGATIVE); LEUKOCYTE ESTERASE,URINE NEGATIVE (NEGATIVE); NITRITE,URINE NEGATIVE (NEGATIVE); OCCULT BLOOD,URINE NEGATIVE (NEGATIVE); PH,URINE 6.5 (5.0-8.0); PROTEIN,URINE NEGATIVE (NEGATIVE); UROBILINOGEN,URINE 0.2 EU/dL (<2.0)
[2024-11-08 20:05] VITALS: BP 132/78; PULSE 90
== END 2024-11-08 20:05 | disposition home or self-care (01) ==
LOC: MW.ED 16:14
DX: R55 Syncope and collapse (principal); Z90.49 Acquired absence of other specified parts of digestive tract; Z91.030 Bee allergy status; Z75.8 Other problems related to medical facilities and other health care
CPT/HCPCS: 36415; 70450; 70496; 70498; 80053; 81003; 83690; 83735; 84484; 85025; 85379; 87428; 93005; 96360; 96361; 99285; J7030; Q9967; 93010; 99283

== ENCOUNTER 2025-03-12 04:17 | Emergency (ER) | payer BC ==
[2025-03-12 04:24] VITALS: BP 135/101; PULSE 84
[2025-03-12] MEDS: Ibuprofen 800 MG Tab PO ONE (04:43)
[2025-03-12] MEDS: Lidocaine 2% Viscous Solution 15 ML UD PO ONE (04:44)
[2025-03-12] MEDS: HYDROmorphone 0.5 MG/0.5 ML Syringe IM ONE (04:44)
[2025-03-12] MEDS: Benzocaine 20% Topical Spray UD MUCMEM ONE (04:44)
== END 2025-03-12 05:08 | disposition home or self-care (01) ==
LOC: MW.ED 04:17
DX: K02.9 Dental caries, unspecified (principal); K05.10 Chronic gingivitis, plaque induced; F17.200 Nicotine dependence, unspecified, uncomplicated; Z90.49 Acquired absence of other specified parts of digestive tract; Z91.030 Bee allergy status
CPT/HCPCS: 96372; 99282; A9270; 99284; J1171

== ENCOUNTER 2025-03-15 23:02 | Inpatient (IN) | payer BC ==
[2025-03-15 23:43] LABS: BASOPHILS ABSOLUTE AUTO 0.09 K/uL (0.00-0.20); EOSINOPHILS ABSOLUTE AUTO 0.35 K/uL (0.00-0.45); EOSINOPHILS PERCENT AUTO 3.9 % (0.0-6.0); HEMOGLOBIN 14.3 g/dL (14.0-18.0); IMMATURE GRAN ABSOLUTE AUTO 0.02 K/uL (0.00-0.05); IMMATURE GRAN PERCENT AUTO 0.2 % (0.0-0.4); LYMPHOCYTES ABSOLUTE AUTO 2.74 K/uL (1.00-4.80); LYMPHOCYTES PERCENT AUTO 30.6 % (24.0-44.0); MEAN CORPUSCULAR HEMOGLOBIN 29.1 pg (28.0-32.0); MEAN CORPUSCULAR HGB CONC 32.5 g/dL (32.0-36.0); MEAN CORPUSCULAR VOLUME 89.4 fL (83.0-99.0); MEAN PLATELET VOLUME 10.2 fL (9.4-12.4); MONOCYTES ABSOLUTE AUTO 0.52 K/uL (0.00-0.80); MONOCYTES PERCENT AUTO 5.8 % (0.0-8.0); NEUTROPHILS ABSOLUTE AUTO 5.23 K/uL (1.80-7.70); NEUTROPHILS PERCENT AUTO 58.5 % (41.0-71.0); PLATELET COUNT,PLT 301 K/uL (150-400); RED BLOOD CELL COUNT 4.92 M/uL (4.52-5.90); WHITE BLOOD CELL COUNT,WBC 8.95 K/uL (3.9-11.3)
[2025-03-15 23:53] LABS: A/G RATIO 1.2 (0.9-1.6); ALBUMIN 4.2 g/dL (3.4-5.0); BILIRUBIN TOTAL 0.2 mg/dL (0.2-1.0); CALCIUM 9.2 mg/dL (8.5-10.1); CREATININE 0.9 mg/dL (0.8-1.3); EST CRCL DRUG DOSING (CG) 101.11 mL/min; POTASSIUM,K 3.8 mmol/L (3.5-5.1); PROTEIN TOTAL,TP 7.7 g/dL (6.4-8.2)
[2025-03-15] MEDS: Sodium Chloride 0.9% 1,000 ML IV ONE (23:53)
[2025-03-15] MEDS: Ketorolac 30 MG/ML SDV IVPUSH ONE (23:54)
[2025-03-15] MEDS: Ondansetron 4 MG/2 ML SDV IVPUSH ONE (23:54)
[2025-03-15] MEDS: Lidocaine 1% 10 ML MDV INFILT ONE (23:55)
[2025-03-15] MEDS: Lidocaine 1% 10 ML MDV ONE (23:57)
[2025-03-16] LABS: INR 1.03 (0.86-1.11)
[2025-03-16] MEDS: Ketamine 500 mg/10 ML MDV IV PRN (00:04)
[2025-03-16] MEDS: Lidocaine 1% 50 ML MDV ONE (00:22)
[2025-03-16] MEDS: HYDROmorphone 0.5 MG/0.5 ML Syringe IVPUSH ONE ×2 (00:30→01:13)
[2025-03-16] MEDS: Lidocaine 1% 10 ML MDV ONE (00:35)
[2025-03-16] MEDS: Acetaminophen 500 MG Tab PO ONE (00:36)
[2025-03-16] MEDS: diphenhydrAMINE 50 MG/ML SDV IVPUSH ONE (00:37)
[2025-03-16] MEDS: methylPREDNISolone Sodium Succinate 125 MG/2 ML SDV IVPUSH ONE (00:37)
[2025-03-16] MEDS: ceFAZolin 1 GM in Water For Injection, Sterile 10 ML IVPUSH ONE (00:58)
[2025-03-16] MEDS: Iopamidol 755 MG/ML 500 ML Multipack Bottle IVPUSH ONE (01:32)
[2025-03-16] MEDS: Orphenadrine 60 MG/2 ML Inj IM ONE (02:05)
[2025-03-16] MEDS ORDERED: Morphine 2 MG/ML SYRINGE IVPUSH PRN (02:34)
[2025-03-16] MEDS ORDERED: Acetaminophen 325 MG Tab PO PRN (02:34)
[2025-03-16] MEDS ORDERED: Sodium Chloride 0.9% 10 ML Syringe FLUSH PRN (02:34)
[2025-03-16] MEDS ORDERED: Sodium Chloride 0.9% 2.5 ML Syringe FLUSH PRN (02:34)
[2025-03-16] MEDS ORDERED: Ondansetron 4 MG/2 ML SDV IVPUSH PRN (02:36)
[2025-03-16] MEDS ORDERED: Naloxone 0.4 MG/ML SDV IVPUSH PRN (02:54)
[2025-03-16] MEDS: Lidocaine 1% 10 ML MDV INFILT ONE (03:26)
[2025-03-16] MEDS: Ketamine 500 mg/10 ML MDV ONE (06:11)
[2025-03-16] MEDS: HYDROmorphone 0.5 MG/0.5 ML Syringe IVPUSH PRN (11:14)
[2025-03-16] MEDS: oxyCODONE 5 MG Tab PO PRN (14:28)
[2025-03-16] MEDS: Cyclobenzaprine 5 MG Tab PO PRN (20:14)
[2025-03-17 06:15] LABS: BASOPHILS ABSOLUTE AUTO 0.06 K/uL (0.00-0.20); BASOPHILS PERCENT AUTO 0.5 % (0.0-1.0); EOSINOPHILS ABSOLUTE AUTO 0.19 K/uL (0.00-0.45); EOSINOPHILS PERCENT AUTO 1.5 % (0.0-6.0); HEMATOCRIT 39.2 % (42.0-52.0); HEMOGLOBIN 13.1 g/dL (14.0-18.0); IMMATURE GRAN ABSOLUTE AUTO 0.04 K/uL (0.00-0.05); IMMATURE GRAN PERCENT AUTO 0.3 % (0.0-0.4); LYMPHOCYTES ABSOLUTE AUTO 3.31 K/uL (1.00-4.80); LYMPHOCYTES PERCENT AUTO 26.9 % (24.0-44.0); MEAN CORPUSCULAR HEMOGLOBIN 29.8 pg (28.0-32.0); MEAN CORPUSCULAR HGB CONC 33.4 g/dL (32.0-36.0); MEAN CORPUSCULAR VOLUME 89.1 fL (83.0-99.0); MEAN PLATELET VOLUME 10.2 fL (9.4-12.4); MONOCYTES ABSOLUTE AUTO 0.76 K/uL (0.00-0.80); MONOCYTES PERCENT AUTO 6.2 % (0.0-8.0); NEUTROPHILS ABSOLUTE AUTO 7.94 K/uL (1.80-7.70); NEUTROPHILS PERCENT AUTO 64.6 % (41.0-71.0); PLATELET COUNT,PLT 297 K/uL (150-400)
[2025-03-17 06:41] LABS: CALCIUM 8.5 mg/dL (8.5-10.1); CARBON DIOXIDE,CO2 28.5 mmol/L (21.0-32.0); CREATININE 0.9 mg/dL (0.8-1.3); EST CRCL DRUG DOSING (CG) 101.92 mL/min; POTASSIUM,K 3.3 mmol/L (3.5-5.1)
[2025-03-17] MEDS: Potassium Chloride 20 MEQ Tab.ER PO ONE (10:58)
[2025-03-17 15:59] VITALS: BP 127/66; PULSE 87
== END 2025-03-17 15:00 | DRG 143 ==
LOC: MW.ED 23:02 → MW.MS 03-16 02:03 → OBSVTOIN 03-16 02:03 → INTOOBSV 03-16 02:03
PROVIDERS: ADMIT Family Medicine; ATTEND Family Medicine
PROC: 0W9930Z Drainage of Right Pleural Cavity with Drainage Device, Percutaneous Approach (ICD-10-PCS; principal; 2025-03-16)
DX: J93.83 Other pneumothorax (principal); J45.909 Unspecified asthma, uncomplicated; J43.9 Emphysema, unspecified; F17.200 Nicotine dependence, unspecified, uncomplicated; G43.909 Migraine, unspecified, not intractable, without status migrainosus; Z88.8 Allergy status to other drugs, medicaments and biological substances; Z79.899 Other long term (current) drug therapy; Z90.49 Acquired absence of other specified parts of digestive tract
CPT/HCPCS: 32551; 36415; 71045; 71045-26; 71260; 71260-26; 80048; 80053; 85025; 85610; 96361; 96374; 96375; 99222; 99239; 99285; 99285-25; A9270-GY; J0690; J1171; J1200; J1885; J2360; J2405; J2919; J3490; J7030; Q9967